=== PATIENT | female | born 1955 | race Caucasian/White ===

== ENCOUNTER → 2019-06-17 | Outpatient (CLI) | payer BC ==
--- NOTE | 2019-06-17 07:40 | US ---
EXAMINATION TYPE: US carotid duplex BILAT DATE OF EXAM: 06/17/2019 COMPARISON: NONE CLINICAL HISTORY: R09.89 Carotid Bruit. EXAM MEASUREMENTS: RIGHT: Peak Systolic Velocity (PSV) cm/sec ----- Right CCA: 62.9 ----- Right ICA: 100. ----- Right ECA: 92.6 ICA/CCA ratio: 1.6 RIGHT: End Diastole cm/sec ----- Right CCA: 22.1 ----- Right ICA: 40.3 ----- Right ECA: 21.4 LEFT: Peak Systolic Velocity (PSV) cm/sec ----- Left CCA: 64.3 ----- Left ICA: 86.0 ----- Left ECA: 109 ICA/CCA ratio: 1.3 LEFT: End Diastole cm/sec ----- Left CCA: 18.2 ----- Left ICA: 38.2 ----- Left ECA: 24.2 VERTEBRALS (direction of flow): Right Vertebral: Antegrade Left Vertebral: Antegrade Rhythm: Normal Mild plaque with no significant velocity elevations. IMPRESSION: Mild degree of grayscale atheromatous plaquing with no sonographically evident hemodynam ically significant stenosis within either visualized carotid arterial system. Criteria for Assigning % of Stenosis / Diameter reduction (Estimation based on the indirect measurements of the internal carotid artery velocities (ICA PSV). 1. Normal (no stenosis)=ICA PSV < 125 cm/s: ratio < 2.0: ICA EDV<40 cm/s. 2. Less than 50% stenosis=ICA PSV < 125 cm/s: ratio < 2.0: ICA EDV<40 cm/s. 3. 50 to 69% stenosis=ICA PSV of 125 to 230 cm/s: ration 2.0 ? 4.0: ICA EDV 40-100 cm/s. 4. Greater than 70% stenosis to near occlusion= ICA PSV > 230 cm/s: ratio > 4.0: ICA EDV > 100 cm/s. 5. Near occlusion= ICA PSV velocities may be low or undetectable: variable ratio and ICA EDV. 6. Total occlusion=unable to detect flow.
[2019-06-17 08:08] LABS: HGB 14.4 gm/dL (11.4-16.0); MCH 26.5 pg (25.0-35.0); MCHC 31.9 g/dL (31.0-37.0); MCV 83.2 fL (80.0-100.0); Mean Platelet Volume 7.6; Platelet Count 267 k/uL (150-450); RBC 5.41 m/uL (3.80-5.40); RDW 14.3 % (11.5-15.5); WBC 6.5 k/uL (3.8-10.6)
[2019-06-17 08:13] LABS: Appearance,Urine Clear (Clear); Bilirubin,Urine Negative (Negative); Blood,Urine Negative (Negative); Color,Urine Light Yellow; Glucose,Urine (UA) Negative (Negative); Ketones,Urine Negative (Negative); Leukocyte Esterase,Urine Negative (Negative); Nitrite,Urine Negative (Negative); Protein,Urine Negative (Negative); Specific Gravity,Urine 1.011 (1.001-1.035); Urobilinogen,Urine <2.0 mg/dL (<2.0)
[2019-06-17 08:19] LABS: ALT 27 U/L (4-34); AST 35 U/L (14-36); African American GFR (CKD) >90 (>60 ml/min/1.73 sqM); Albumin 4.4 g/dL (3.5-5.0); Alkaline Phosphatase 89 U/L (38-126); Anion Gap 7 mmol/L; Blood Urea Nitrogen 18 mg/dL (7-17); Calcium 9.8 mg/dL (8.4-10.2); Carbon Dioxide 28 mmol/L (22-30); Chloride 106 mmol/L (98-107); Cholesterol 218 mg/dL (<200); Glucose 108 mg/dL (74-99); HDL Cholesterol 51 mg/dL (40-60); LDL Cholesterol,Calculated 146 mg/dL (0-99); Magnesium 1.8 mg/dL (1.6-2.3); Non-African American GFR(CKD) 88 (>60 ml/min/1.73 sqM); Potassium 4.8 mmol/L (3.5-5.1); Sodium 141 mmol/L (137-145); Total Bilirubin 0.4 mg/dL (0.2-1.3); Total Protein 7.2 g/dL (6.3-8.2); Triglycerides 105 mg/dL (<150)
--- NOTE | 2019-06-17 09:31 | MR ---
EXAMINATION TYPE: MR brain wo con DATE OF EXAM: 06/17/2019 COMPARISON: CT brain 11/10/2013 HISTORY: Carotid Bruit CONTRAST: Performed utilizing 0 mL intravenous Gadavist gadolinium contrast. TECHNIQUE: Multiplanar, multiecho imaging on a 3.0 Chrissie magnet is performed through the brain. Stud y is performed within 24 hours of arrival to the hospital. The craniovertebral junction is normal. The pituitary is normal. Diffusion-weighted imaging is performed. No abnormal hyperintensity is present to suggest an acute i ntracranial infarct or acute ischemic change. Small Virchow-Jarocho's spaces in the right basal ganglio n. White matter changes on T2 and inversion recovery weighted sequences are evident in the brainstem. Mi lder periventricular white matter changes are present. Ventricles and sulci are appropriate for the patient age. IMPRESSIONS: 1. There is some mild white matter change predominantly within the brainstem. Findings may be related to microvascular ischemic change.
== END | disposition home or self-care (01) ==
LOC: RADMRIMAIN 05:59
PROVIDERS: ATTEND Family Medicine
DX: I67.2 Cerebral atherosclerosis (principal); I10 Essential (primary) hypertension; E78.5 Hyperlipidemia, unspecified; R90.89 Other abnormal findings on diagnostic imaging of central nervous system; R09.89 Other specified symptoms and signs involving the circulatory and respiratory systems; R29.810 Facial weakness; Z79.899 Other long term (current) drug therapy
CPT/HCPCS: 70551; 80053; 80061; 81003; 83036; 83735; 84443; 85027; 93880

== ENCOUNTER → 2020-09-24 | Outpatient (CLI) | payer MEDICARE, OTHER ==
--- NOTE | 2020-09-24 08:30 | CTL ---
EXAMINATION TYPE: CT Low Dose Lung DATE OF EXAM ORDERED: 09/24/2020 HISTORY: Personal history tobacco use. Lung cancer screening CT DLP: 77.[address] CTDI: 2.29 mGy Automated exposure control for dose reduction was used. SCREENING VISIT: Initial COMPARISON: None TECHNIQUE: Low dose computed tomography scan was performed through the chest at 1 mm thick sections a nd reconstructed images in the coronal plane at [address] DIAGNOSTIC QUALITY: Limited, but interpretable FINDINGS: LUNG NODULES: Present, detailed below: There is a 2.9 x 1.6 cm peripheral based density within the right middle lobe, series 5 image 185. Ad ditional workup is recommended. a nodule with a size of . Nodule Size in Millimeters mm was visualize d with Nodule Type: that is Nodule state: in nature on image # CT Image slide number . LUNGS: COPD: Severity: None Fibrosis: Severity: None Lymph nodes: None Other findings: None RIGHT PLEURAL SPACE: Effusion: None Calcification: None Thickening: None Pneumothorax: None LEFT PLEURAL SPACE: Effusion: None Calcification: None Thickening: None Pneumothorax: None HEART: Heart Size: Normal Coronary calcification: Moderate Pericardial effusion: None OTHER FINDINGS: Upper abdomen: Small hiatal hernia is present. Bony thorax: Normal Supraclavicular region: Normal Other: Ascending thoracic aorta at the level the main pulmonary artery measures 3.6 cm. The main pul monary artery at the bifurcation measures 2.6 cm. IMPRESSION: 1. Elongated density extending towards the pleural margin within the right middle lobe. Neoplasm shou ld be considered. PET/CT is recommended for additional evaluation. FOLLOW UP CT CHEST RECOMMENDATION: Yes, PET/CT for right middle lobe mass. CT LUNG RAD: Lung-Rad 4B Suspicious
== END | disposition home or self-care (01) ==
LOC: RADCTMAIN 06:46
PROVIDERS: ATTEND Family Medicine
DX: Z12.2 Encounter for screening for malignant neoplasm of respiratory organs (principal); J98.4 Other disorders of lung; F17.210 Nicotine dependence, cigarettes, uncomplicated
CPT/HCPCS: 71271

== ENCOUNTER → 2020-09-28 | Outpatient (CLI) | payer MEDICARE, OTHER ==
--- NOTE | 2020-09-28 13:43 | PE ---
EXAMINATION TYPE: PET CT fusion skull to thigh DATE OF EXAM: 09/28/2020 COMPARISON: Low-dose lung screening CT 4 days ago HISTORY: Abnormal CT TECHNIQUE: Following the intravenous administration of 10.96 mCi of F-18 FDG, whole body images are performed from the skull base to the midthigh. Images are reviewed on the computer in the coronal, a xial, and sagittal planes. Reconstructed rotating images are created on independent workstation and reviewed on the computer. A localization and attenuation correction CT is performed in conjunction with the PET scan. Blood glucose level equals 102 SCAN: Initial Scan FINDINGS: SKULL BASE AND NECK: No areas of suspicious hypermetabolic uptake. CHEST, MEDIASTINUM, AND HILAR REGION: There is persistent anterior right middle lobe 1.7 x 1.7 cm les ion series 3 image 105, majority of lesion is a metabolic but there is subcentimeter central hypermet abolic focus noted. No additional areas of abnormal hypermetabolic uptake in the thorax. ABDOMEN AND PELVIS: No adrenal masses are evident. No suspicious hypermetabolic uptake. OSSEOUS STRUCTURES: No suspicious hypermetabolic uptake. OTHER CT: Moderate calcified plaque bilateral carotid bulb level. Moderate atherosclerotic change of aorta extends into branch vessels. Grade 1 anterolisthesis L5 on S1. Moderate to severe disc space narrowing with vacuum disc phenomenon at this level. IMPRESSION: Subcentimeter focus abnormal hypermetabolic uptake could reflect small neoplasm with post obstructive atelectasis. At minimal short-term CT or PET CT follow-up in 3 months time is advised. Br onchoscopy to evaluate for obstructing distal endobronchial lesion should be considered.
== END | disposition home or self-care (01) ==
LOC: RADPETMAIN 08:31
PROVIDERS: ATTEND Family Medicine
DX: J98.11 Atelectasis (principal)
CPT/HCPCS: 78815; A9552

== ENCOUNTER → 2020-10-05 | Outpatient (CLI) | payer MEDICARE, OTHER ==
--- NOTE | 2020-10-05 12:36 | FL ---
EXAMINATION TYPE: FL UGI air DATE OF EXAM: 10/05/2020 CLINICAL INDICATION: 65-year-old female R13.10, dysphagia, difficulty swallowing, patient reports hav ing 2 follow-up couple times to make food and liquid go down. COMPARISON: None Total Fluoroscopy Time: 2 minutes 39 seconds Total images: 53. FINDINGS: The swallowing mechanism is normal and hypopharyngeal anatomy is preserved. There is mild to moderat e endplate spondylosis lower cervical spine with anterior spurring causing mild impressions onto the posterior wall of the cervical esophagus. Thoracic portion has a normal course and caliber. Minimal occasional tertiary peristaltic waves sugge st age-related change in esophageal contractility. The mucosa is normal and no persistent filling defect is encountered. There is a small to moderate-sized sliding hiatal hernia. Valsalva maneuver results in backfilling in to the hernia but no ori gastroesophageal reflux could be elicited during the course of the exam. There is mild diffuse gastric fold thickening noted. A couple tiny subcentimeter smooth round polypoi d filling defects are present in the proximal body of the stomach suggesting hyperplastic polyps. No significant filling defect or ulceration is seen. The duodenal C-loop appears normal. IMPRESSION: 1. Some anterior endplate spondylosis in the mid to lower cervical spine causes some mild impression onto the posterior wall of the cervical esophagus. However, there is no significant narrowing or obst ruction. 2. Small to moderate-sized sliding hiatal hernia. There is backfilling into the hernia with Valsalva but ori gastroesophageal reflux could not be elicited during the course of the exam. 3. Findings suggest mild chronic gastritis along with a couple reactive hyperplastic polyps.
== END | disposition home or self-care (01) ==
LOC: RADUSWWP 08:35
PROVIDERS: ATTEND Family Medicine
DX: K44.9 Diaphragmatic hernia without obstruction or gangrene (principal); R93.3 Abnormal findings on diagnostic imaging of other parts of digestive tract
CPT/HCPCS: 74246

== ENCOUNTER → 2020-10-22 | Outpatient (CLI) | payer MEDICARE, OTHER ==
--- NOTE | 2020-10-23 08:59 | MM ---
Reason for exam: screening (asymptomatic). Last mammogram was performed 7 years and 1 month ago. History: Patient is postmenopausal. Physical Findings: A clinical breast exam by your physician is recommended on an annual basis and results should be correlated with mammographic findings. MG 3D Screening Mammo W/Cad Bilateral CC and MLO view(s) were taken. Prior study comparison: September 14, 2013, bilateral digital screening mammo w/CAD. October 05, 2010, bilateral digital screening mammo w/CAD. The breast tissue is heterogeneously dense. This may lower the sensitivity of mammography. There are benign appearing round dystrophic calcifications bilaterally. There is no discrete abnormality. ASSESSMENT: Benign, BI-RAD 2 RECOMMENDATION: Routine screening mammogram of both breasts in 1 year.
== END | disposition home or self-care (01) ==
LOC: RADMAMWWP 08:30
PROVIDERS: ATTEND Family Medicine
DX: Z12.31 Encounter for screening mammogram for malignant neoplasm of breast (principal); Z78.0 Asymptomatic menopausal state
CPT/HCPCS: 77063; 77067

== ENCOUNTER → 2020-11-16 | Outpatient (CLI) | payer MEDICARE, OTHER ==
[2020-11-16 11:19] LABS: Basophils # (A) 0.1 k/uL (0-0.2); Basophils % (A) 1 %; Eosinophils # (A) 0.2 k/uL (0-0.7); Eosinophils % (A) 2 %; HCT 42.4 % (34.0-46.0); HGB 13.5 gm/dL (11.4-16.0); Lymphocytes # (A) 2.2 k/uL (1.0-4.8); Lymphocytes % (A) 34 %; MCH 27.1 pg (25.0-35.0); MCHC 31.9 g/dL (31.0-37.0); MCV 84.9 fL (80.0-100.0); Mean Platelet Volume 7.3; Monocytes # (A) 0.3 k/uL (0-1.0); Monocytes % (A) 5 %; Neutrophils # (A) 3.5 k/uL (1.3-7.7); Neutrophils % (A) 55 %; Platelet Count 253 k/uL (150-450); RBC 4.99 m/uL (3.80-5.40); RDW 13.8 % (11.5-15.5); WBC 6.3 k/uL (3.8-10.6)
[2020-11-16 11:21] LABS: African American GFR (CKD) >90 (>60 ml/min/1.73 sqM); Anion Gap 10 mmol/L; Blood Urea Nitrogen 17 mg/dL (7-17); Carbon Dioxide 25 mmol/L (22-30); Chloride 106 mmol/L (98-107); Glucose 108 mg/dL (74-99); Non-African American GFR(CKD) 79 (>60 ml/min/1.73 sqM); Potassium 3.7 mmol/L (3.5-5.1); Sodium 141 mmol/L (137-145)
[2020-11-16 11:31] LABS: INR 0.9 (<1.2); Partial Thromboplastin Time 24.9 sec (22.0-30.0); Prothrombin Time 10.1 sec (9.0-12.0)
[2020-11-16 11:39] LABS: Appearance,Urine Clear (Clear); Bilirubin,Urine Negative (Negative); Blood,Urine Negative (Negative); Color,Urine Yellow; Glucose,Urine (UA) Negative (Negative); Ketones,Urine Negative (Negative); Leukocyte Esterase,Urine Negative (Negative); Nitrite,Urine Negative (Negative); PH, Urine 5.5 (5.0-8.0); Protein,Urine Negative (Negative); Specific Gravity,Urine 1.016 (1.001-1.035); Urobilinogen,Urine <2.0 mg/dL (<2.0)
== END | disposition home or self-care (01) ==
LOC: LABPAT 10:21
PROVIDERS: ATTEND Thoracic Surgery (Cardiothoracic Vascular Surgery)
DX: Z01.818 Encounter for other preprocedural examination (principal); C34.2 Malignant neoplasm of middle lobe, bronchus or lung; E86.0 Dehydration; E87.8 Other disorders of electrolyte and fluid balance, not elsewhere classified; R58 Hemorrhage, not elsewhere classified; R06.00 Dyspnea, unspecified
CPT/HCPCS: 36415; 80051; 81003; 82565; 82947; 84520; 85025; 85610; 85730; 86850; 86900; 86901; 87086; 93005

== ENCOUNTER 2020-11-22 05:58 | Inpatient (IN) | payer MEDICARE, OTHER ==
[2020-11-20 15:19] VITALS: BMI 28.3
[~2020-11-22 05:58] MED LIST: DEXAMETHASONE SOD PHOSPHATE 4 MG/ML 1 ML VIAL IV ONE; HYDROmorphone 0.5 MG/0.5 ML SYRINGE IVP PRN; LACTATED RINGERS 1,000 ML IV SCH; LIDOCAINE 1% (10MG/ML) FOR IV START INTRADERMA PRN; MIDAZOLAM 2 MG/2 ML VIAL IV PRN; ONDANSETRON 4 MG/2 ML VIAL IVP ONE; fentaNYL (PF) 50 MCG/ML 2 ML AMP IVP PRN
[2020-11-22] MEDS ORDERED: fentaNYL (PF) 50 MCG/ML 2 ML AMP IV ONE (07:04)
[2020-11-22] MEDS ORDERED: PROPOFOL 10 MG/ML 20 ML VIAL IV ONE (07:24)
[2020-11-22] MEDS ORDERED: ROCURONIUM 10 MG/ML (5 ML VIAL) IV ONE (07:24)
[2020-11-22] MEDS ORDERED: HYDROmorphone (PF) 1 MG/ML ONE (07:24)
[2020-11-22] MEDS ORDERED: ROPIVACAINE 5 MG/ML 30 ML VIAL ONE (07:24)
[2020-11-22] MEDS ORDERED: PHENYLEPHRINE-0.9% NACL SYG 1,000 MCG/10 ML SYRINGE ONE (07:24)
[2020-11-22] MEDS ORDERED: GLYCOPYRROLATE 0.2 MG/ML 2 ML VIAL ONE (07:24)
[2020-11-22] MEDS ORDERED: NEOSTIGMINE 1 MG/ML 10 ML VIAL ONE (07:24)
[2020-11-22] MEDS ORDERED: LIDOCAINE 1%-EPI 1:100,000 20 ML VIAL ONE (07:24)
[2020-11-22] MEDS ORDERED: MIDAZOLAM 2 MG/2 ML VIAL ONE (07:24)
[2020-11-22] MEDS ORDERED: fentaNYL (PF) 50 MCG/ML 2 ML AMP ONE (07:24)
[2020-11-22] MEDS ORDERED: SUCCINYLCHOLINE CHLORIDE 100 MG/5 ML SYR IV ONE (07:24)
[2020-11-22] MEDS ORDERED: LIDOCAINE 1% INJ 10MG/ML (20 ML MDV) ONE (07:24)
[2020-11-22] MEDS ORDERED: BUPIVACAINE (PF) 0.5% 30 ML VIAL SQ ONE ×2 (09:08)
[2020-11-22] MEDS ORDERED: LACTATED RINGERS 1,000 ML IV ONE (10:30)
--- NOTE | 2020-11-22 11:41 | XR ---
EXAMINATION TYPE: XR chest 1V portable DATE OF EXAM: 11/22/2020 HISTORY: Shortness of breath. COMPARISON: 11/10/2013 TECHNIQUE: Single view of the chest is submitted. FINDINGS: Right-sided chest tube is in place. There is no evidence for sizable pneumothorax. Strandy density le ft lung base. There is no evidence for focal infiltrate. The heart is stable. Hilar and mediastinal structures are within normal limits. Degenerative changes are seen of the dorsal spine. IMPRESSION: 1. Right-sided chest tube is in place. There is no evidence for sizable pneumothorax.
[2020-11-22] MEDS ORDERED: METOCLOPRAMIDE 5 MG/ML 2 ML VIAL IVP PRN (12:46)
[2020-11-22] MEDS ORDERED: bisacodyL 10 MG SUPP RECTAL PRN (12:46)
[2020-11-22] MEDS ORDERED: ALBUTEROL HFA INHALER INHALATION PRN (12:46)
[2020-11-22] MEDS ORDERED: IPRATROPIUM-ALBUTEROL 3 ML NEB IH PRN (12:46)
[2020-11-22] MEDS ORDERED: ONDANSETRON 4 MG/2 ML VIAL IVP PRN (12:46)
[2020-11-22] MEDS: DEXTROSE 5%-0.45% NACL 1,000 ML IV SCH (13:17)
[2020-11-22] MEDS: KETOROLAC 15 MG/ML 1 ML VIAL IVP SCH ×3 (13:18→23:55)
[2020-11-22 13:20] LABS: Basophils % (A) 0 %; Eosinophils # (A) 0.1 k/uL (0-0.7); Eosinophils % (A) 1 %; HCT 39.3 % (34.0-46.0); HGB 13.2 gm/dL (11.4-16.0); Lymphocytes # (A) 1.1 k/uL (1.0-4.8); Lymphocytes % (A) 9 %; MCH 28.8 pg (25.0-35.0); MCHC 33.5 g/dL (31.0-37.0); Mean Platelet Volume 7.3; Monocytes # (A) 0.5 k/uL (0-1.0); Monocytes % (A) 4 %; Neutrophils # (A) 10.5 k/uL (1.3-7.7); Neutrophils % (A) 84 %; Platelet Count 208 k/uL (150-450); RBC 4.58 m/uL (3.80-5.40); RDW 13.8 % (11.5-15.5); WBC 12.4 k/uL (3.8-10.6)
[2020-11-22] MEDS: ACETAMINOPHEN IV (For NPO) 1,000 MG in EMPTY BAG 1 BAG IVPB SCH ×2 (13:56→18:28)
--- NOTE | 2020-11-22 14:42 | P.OP ---
Date of Procedure: 11/22/20 Preoperative Diagnosis: Middle lobe mass Postoperative Diagnosis: Same Procedure(s) Performed: robotic-assisted thoracoscopic right middle lobectomy with mediastinal lymph node dissection Anesthesia: BIBIANA Surgeon: Yohan Cox Estimated Blood Loss (ml): 10 IV fluids (ml): 1,500 Urine output (ml): 300 Pathology: other (Right middle lobe, lymph node stations R9, R8, R 10, R 11, R4, level 7) Condition: stable Disposition: PACU Indications for Procedure: 5-year-old female with enlarging right middle lobe lesion. She is a smoker. This lesion was positive by PET. Patient was offered several options including needle biopsy for diagnosis, thoracoscopic wedge resection, lobectomy. Patient opted for lobectomy. Operative Findings: tumor was palpable in the middle lobe fairly deep in the tissue. The fissures were nearly complete. On completion of the lobectomy and reexpansion of the lung there was no evidence of air leak. There was extensive hilar and mediastinal adenopathy but this was benign-appearing anthracotic adenopathy throughout. Description of Procedure: the patient was brought to the operating room, placed supine on the operating room table., Anesthetized and intubated with a double-lumen endotracheal tube. Tube was positioned with fiberoptic bronchoscopy. There were no endobronchial lesions noted. Tube was secured in position and the patient was turned into the left lateral decubitus position and appropriately positioned for robotic lobectomy. The right chest was sterilely prepped and draped. Initial incision was made in the ninth interspace in the anterior axillary line and a 8 mm robotic port was placed into the pleural space. Placement was confirmed by thoracoscopy and then CO2 insufflation was begun. Anterior and posterior to the initial port to 12 mm robotic ports were placed. A second 8 mm robotic port was placed in the fifth interspace posteriorly. Working port was placed between the 2 most anterior ports at the level of the diaphragm. The robot was then docked. Chest was explored and the mass was identified in the middle lobe. Partial dissection was performed and the fissures the pulmonary artery was noted in the lesser fissure and the bronchus was noted in the greater fissure. Inferior pulmonary ligament was taken down and dissection of the R9, R8 and level 7 lymph nodes was performed.dissection was carried down along the bronchus intermedius and the takeoff of the superior segmental bronchus to the upper lobe superior segment was noted. Some R 11 lymph nodes were dissected in this region. We now directed our attention anteriorly and dissected out the branch of the pulmonary vein dividing drain the 2 segments of the middle lobe. This was encircled and ligated and divided with the robotic stapler. Dissection was carried onto the middle lobe bronchus. Further R 11 lymph nodes were resected. The bronchus was encircled and ligated and divided with a robotic stapler. Dissection was now carried onto the pulmonary artery. 2 branches of the pulmonary artery were noted leading to the middle lobe. These were encircled and ligated and divided with a single firing of a robotic vascular stapler. We now completed the fissures with firings of Endo KARINA robotic 45 mm blue stapler. The lobectomy specimen was paced in an Endo Catch bag. Further R 11 lymph nodes were dissected. We now opened the pleura at the superior aspect of the hilum and identified the R 10 lymph nodes resecting these and sending them for permanent section. Dissection was now carried into the paratracheal region above the azygos vein and the R4 lymph nodes were resected. Having completed the lobectomy and mediastinal lymph node dissection, the robot was undocked. The working port incision was enlarged somewhat to allow passage of the lobectomy specimen inside the Endo Catch bag. This was sent for permanent section along with the lymph nodes noted above. Chest was irrigated with warm water and the lung reinflated and no air leak was noted. Chest was then suctioned free and a 28-Vietnamese chest tube was placed through the anteriormost incision and positioned posterior apically. It was secured with a 0 Ethibond suture. Incisions were now closed with layers of Vicryl suture. Rib blocks were performed posteriorly at the levels of the incisions with half percent Marcaine. Dry sterile dressings were applied and the chest tube was connected to a Pleur-evac. Patient was turned supine and extubated and transferred to recovery in stable condition.
[2020-11-22] MEDS: IPRATROPIUM-ALBUTEROL 3 ML NEB IH SCH ×3 (15:34→19:55)
--- NOTE | 2020-11-22 15:38 | P.CNPUL ---
History of Present Illness Consult date: 11/22/20 Requesting physician: Yohan Cox Reason for consult: COPD, lung mass, abnormal CXR/CT Chief complaint: Status post right middle lobectomy. History of present illness: Consult dated 11/22/2020. 65-year-old female, postop day #0, status post right middle lobectomy, for PET scan positive right middle lobe lesion. The patient also had a mediastinal lymph node dissection. The surgery was done by Dr. Cox. She is resting comfortably in her room. The patient's getting O2 at 2 L by nasal cannula. She has a right chest tube in place. She's hoping to be discharged over the weekend. The patient has a history of hypertension, COPD, gastroesophageal reflux disease, hyperlipidemia, and seasonal ALLERGIES. The patient tolerated the procedure well. She's having a bit of pain. We encourage her to deep breathe cough and clear secretions and use the incentive spirometer every hour. White count is 12.4, hemoglobin, hematocrit, and platelet count are all normal. Chest x-ray looks good. His a right-sided chest tube. The right lung appears to be fully expanded. Review of Systems REVIEW OF SYSTEMS: CONSTITUTIONAL: [Negative.] NEUROLOGIC: [ Negative.] HEENT: [ Negative.] CARDIAC: [Negative.] PULMONARY: Minimal to moderate right-sided chest pain. GI: [Negative.] : [Negative.] RHEUMATOLOGIC: [ Negative.] IMMUNOLOGIC: [ Negative.] ENDOCRINE: [Negative. ] DERMATOLOGIC: [Negative.] Past Medical History Past Medical History: Cancer, COPD, GERD/Reflux, Hyperlipidemia, Hypertension, Liver Disease, Osteoarthritis (OA) Additional Past Medical History / Comment(s): hx hepatic encephalopathy, skin cancer, hiatal hernia, nodule rt middle lobe History of Any Multi-Drug Resistant Organisms: MRSA Date of last positivie culture/infection: 2012 MDRO Source:: left arm Past Surgical History: No Surgical Hx Reported Additional Past Surgical History / Comment(s): Removal of skin cancer from abdomen, colonocopy Past Anesthesia/Blood Transfusion Reactions: No Reported Reaction Additional Past Anesthesia/Blood Transfusion Reaction / Comment(s): never had general anesthesia Smoking Status: Former smoker - Past Family History Father Family Medical History: Cancer Mother Family Medical History: CVA/TIA, Diabetes Mellitus Sister(s) Family Medical History: Cancer Medications and Allergies Home Medications Medication Instructions Recorded Confirmed Type Omeprazole 20 mg PO DAILY 11/10/13 11/22/20 History Albuterol Sulfate [Proair Hfa] 2 puff INHALATION Q6HR PRN 11/20/20 11/22/20 History Aspirin [Adult Low Dose Aspirin EC] 81 mg PO DAILY 11/20/20 11/22/20 History Atorvastatin [Lipitor] 20 mg PO DAILY 11/20/20 11/22/20 History Cholecalciferol [Vitamin D3 (25 50 mcg PO DAILY 11/20/20 11/22/20 History Mcg = 1000 Iu)] Losartan Potassium 50 mg PO QAM 11/20/20 11/22/20 History Montelukast [Singulair] 10 mg PO HS 11/20/20 11/22/20 History Multivitamins, Thera [Multivitamin 1 tab PO DAILY 11/20/20 11/22/20 History (formulary)] [place]-3 Fatty Acids/Fish Oil [Fish 1 each PO DAILY 11/20/20 11/22/20 History Oil 1,000 mg Softgel] Potassium Gluconate 99 mg PO DAILY 11/20/20 11/22/20 History buPROPion HCL [Wellbutrin SR] 150 mg PO Q12H 11/20/20 11/22/20 History hydroCHLOROthiazide 25 mg PO QAM 11/20/20 11/22/20 History Allergies Allergy/AdvReac Type Severity Reaction Status Date / Time No Known Allergies Allergy Verified 11/22/20 06:27 Physical Exam Osteopathic Statement: *. No significant issues noted on an osteopathic structural exam other than those noted in the History and Physical/Consult. Vitals: Vital Signs Temp Pulse Resp BP BP Pulse Ox 11/22/20 15:27 82 20 151/85 11/22/20 14:00 80 20 147/75 11/22/20 13:30 85 20 132/78 11/22/20 13:09 82 20 138/81 98 11/22/20 12:45 83 20 132/80 11/22/20 12:30 82 20 136/67 11/22/20 12:15 97.5 F L 84 20 153/80 93 L 11/22/20 11:45 73 18 136/72 97 11/22/20 11:30 82 18 148/70 98 11/22/20 11:15 79 16 141/66 97 11/22/20 11:03 67 16 143/67 150/69 100 11/22/20 10:48 78 16 147/69 135/61 100 11/22/20 10:33 96.9 F L 81 14 135/63 100 11/22/20 07:11 75 16 145/70 95 11/22/20 06:26 98.4 F 79 16 148/67 97 Intake and Output 11/22/20 11/22/20 11/22/20 06:59 14:59 22:59 Intake Total 400 1350 Output Total 210 Balance 400 1140 Intake: IV 400 1350 Oral 0 Output: Urine 200 Estimated Blood Loss 10 Other: Weight 77.6 kg No acute distress, oriented 3. Currently on 2 L nasal cannula. Saturations are 98%. HEENT examination is grossly unremarkable. Neck supple. Full range of motion. No adenopathy thyromegaly or neck vein distention. Cardiovascular examination reveals regular rhythm rate. S1-S2 normal. No S3 or S4. No discernible murmur noted. Heart rate is 82 bpm. Lungs reveal clear breath sounds. Breath sounds are equal bilaterally. No adventitious lung sounds including wheezes rhonchi or crackles. Abdomen soft bowel sounds are heard. No masses or tenderness. Extremities are intact. No cyanosis clubbing or edema. Skin is without rash or lesion. Neurologic examination is brief but nonfocal. Results - Laboratory Findings CBC and BMP: 11/22/20 12:57 Abnormal lab findings: Abnormal Labs 11/22/20 12:57 WBC 12.4 H Neutrophils # 10.5 H - Diagnostic Findings Chest x-ray: image reviewed Assessment and Plan Assessment: Postop day #0, status post right middle lobectomy and mediastinal lymph node dissection, for a PET scan-positive lesion in the right middle lobe. Previous history of heavy tobacco use, with recent cessation. History of COPD. History of hypertension. History of seasonal ALLERGIES. History of hyperlipidemia. History of gastroesophageal reflux disease. Plan: Plan dated 11/22/2020. Currently, the patient's doing well. The patient will likely be discharged over the weekend. Encourage deep breathing coughing and clearing secretions. We also recommend hourly use of the incentive spirometer. No additional recommendations are made. The patient will follow-up with my partner post discharge. We will continue to follow make recommendations where appropriate. Time with Patient: Greater than 30
--- NOTE | 2020-11-22 16:35 | P.CONS ---
History of Present Illness - Reason for Consult Consult date: 11/22/20 HTN Requesting physician: Yohan Cox - Chief Complaint lung mass - History of Present Illness Patient is a 65-year-old female with a PET positive right middle lobe lesion status post robotic-assisted thoracoscopy with right middle lobectomy and lymph node dissection. She has HTN< COPD, GERD, HLD, and cirrhosis. Patient tolerated procedure well without any immediate complications. Patient seen and examined at bedside. She reports that her mass was found on his screening x-ray. She stopped smoking when she discovered a mass. She reports that she has a history of liver issues in the past that was over 13 years ago and she has quit drinking sensitive never had any additional liver issues. She has not had any unusual cough, cold, fever, flu, nausea, vomiting, or diarrhea. Postoperatively she denies any cough, chest pain, shortness of breath, nausea, vomiting, or dizziness. Review of Systems Pertinent positives and negatives as discussed in HPI, a complete review of systems was performed and all other systems are negative. Past Medical History Past Medical History: Cancer, COPD, GERD/Reflux, Hyperlipidemia, Hypertension, Liver Disease, Osteoarthritis (OA) Additional Past Medical History / Comment(s): hx hepatic encephalopathy- no issues since 2012 and she has stopped drinking since that time, skin cancer, hiatal hernia, nodule rt middle lobe History of Any Multi-Drug Resistant Organisms: MRSA Year Discovered:: 2012 MDRO Source:: left arm Additional Past Surgical History / Comment(s): Removal of skin cancer from abdomen, colonocopy Past Anesthesia/Blood Transfusion Reactions: No Reported Reaction Additional Past Anesthesia/Blood Transfusion Reaction / Comm: never had general anesthesia Smoking Status: Former smoker Past Alcohol Use History: None Reported Additional History: no assistive devices - Past Family History Father Family Medical History: Cancer Mother Family Medical History: CVA/TIA, Diabetes Mellitus Sister(s) Family Medical History: Cancer Medications and Allergies Home Medications Medication Instructions Recorded Confirmed Type Omeprazole 20 mg PO DAILY 11/10/13 11/22/20 History Albuterol Sulfate [Proair Hfa] 2 puff INHALATION Q6HR PRN 11/20/20 11/22/20 History Aspirin [Adult Low Dose Aspirin EC] 81 mg PO DAILY 11/20/20 11/22/20 History Atorvastatin [Lipitor] 20 mg PO DAILY 11/20/20 11/22/20 History Cholecalciferol [Vitamin D3 (25 50 mcg PO DAILY 11/20/20 11/22/20 History Mcg = 1000 Iu)] Losartan Potassium 50 mg PO QAM 11/20/20 11/22/20 History Montelukast [Singulair] 10 mg PO HS 11/20/20 11/22/20 History Multivitamins, Thera [Multivitamin 1 tab PO DAILY 11/20/20 11/22/20 History (formulary)] [place]-3 Fatty Acids/Fish Oil [Fish 1 each PO DAILY 11/20/20 11/22/20 History Oil 1,000 mg Softgel] Potassium Gluconate 99 mg PO DAILY 11/20/20 11/22/20 History buPROPion HCL [Wellbutrin SR] 150 mg PO Q12H 11/20/20 11/22/20 History hydroCHLOROthiazide 25 mg PO QAM 11/20/20 11/22/20 History Allergies Allergy/AdvReac Type Severity Reaction Status Date / Time No Known Allergies Allergy Verified 11/22/20 06:27 Physical Exam Osteopathic Statement: *. No significant issues noted on an osteopathic structural exam other than those noted in the History and Physical/Consult. Vitals: Vital Signs Temp Pulse Pulse Resp BP BP Pulse Ox 11/22/20 15:42 88 11/22/20 15:36 88 11/22/20 15:27 82 20 151/85 11/22/20 14:00 80 20 147/75 11/22/20 13:30 85 20 132/78 11/22/20 13:09 82 20 138/81 98 11/22/20 12:45 83 20 132/80 11/22/20 12:30 82 20 136/67 11/22/20 12:15 97.5 F L 84 20 153/80 93 L 11/22/20 11:45 73 18 136/72 97 11/22/20 11:30 82 18 148/70 98 11/22/20 11:15 79 16 141/66 97 11/22/20 11:03 67 16 143/67 150/69 100 11/22/20 10:48 78 16 147/69 135/61 100 11/22/20 10:33 96.9 F L 81 14 135/63 100 11/22/20 07:11 75 16 145/70 95 11/22/20 06:26 98.4 F 79 16 148/67 97 Intake and Output 11/22/20 11/22/20 11/22/20 06:59 14:59 22:59 Intake Total 400 1350 Output Total 210 Balance 400 1140 Intake: IV 400 1350 Oral 0 Output: Urine 200 Estimated Blood Loss 10 Other: Weight 77.6 kg General: non toxic, no distress, appears at stated age Derm: warm, dry Head: atraumatic, normocephalic, symmetric Eyes: EOMI, no lid lag, anicteric sclera, pupils equal round reactive to light ENT: Nose and ears atraumatic, no thrush, no pharyngeal erythema Neck: No thyromegaly, no cervical lymphadenopathy, trachea midline, supple Mouth: no lip lesion, mucus membranes moist Cardiovascular: S1S2 reg, no murmur, positive posterior tibial pulse bilateral, no edema, capillary refill less than 2 seconds Lungs: course breath sounds on the right, no ronchi, no rales, no wheeze, no accessory muscle use Abdominal: soft, nontender to palpation, no guarding, no appreciable organomegaly, normal bowel sounds Ext: no gross muscle atrophy, muscle strength muscle strength 5 out of 5 in all 4 extremities, no contractures Neuro: CN II-XI grossly intact, light touch intact all 4 extremities, finger to nose within normal limits, Psych: Alert, oriented, appropriate affect Results CBC & Chem 7: 11/22/20 12:57 Labs: Abnormal Lab Results - Last 24 Hours (Table) 11/22/20 Range/Units 12:57 WBC 12.4 H (3.8-10.6) k/uL Neutrophils # 10.5 H (1.3-7.7) k/uL Assessment and Plan Assessment: 65 yo F s/p robotic right middlelobestomy. Management per CT surgery. HTN -Controlled -Continue home hydrochlorothiazide and losartan HLD - statin GERD - PPI COPD, seasonal allergies - prn bronchodilators - pulm recs -Singulair Hx of tobacco abuse Thank you for allowing us to participate in the care of this pleasant patient. Do not hesitate to contact us with questions. Someone can be reached from the [facility] hospitalist group all hours of the day at [phone] or via perfect serve.
[2020-11-22] MEDS: traMADol 50 MG TAB PO SCH ×2 (17:58→21:37)
[2020-11-22] MEDS: HEPARIN SODIUM,PORCINE/PF 5,000 UNIT/0.5 ML SYRINGE SQ SCH ×2 (18:01→23:55)
--- NOTE | 2020-11-22 20:02 | P.ANPRN ---
Procedure Note - Anesthesia - Nerve Block Performed Right Erector Spinae Single Time Out Performed: Yes Date of Procedure: 11/22/20 Procedure Start Time: 07:04 Procedure Stop Time: 07:10 Location of Patient: PreOp Indication: Acute Post-Operative Pain, Requested by Surgeon Sedation Type: Sedate with meaningful contact maintained Preparation: Sterile Prep Position: Prone Needle Types: Pajunk Needle Gauge: 21 Ultrasound used to visualize needle placement: Yes Ultrasound used to observe medication spread: Yes Resistance on Injection: Normal Image Stored and Saved: Yes Events: Uneventful and Well Tolerated (Ropivacaine 0.5% 15 mL plus Xylocaine 1% with epi 15 mL given at T6)
[2020-11-22] MEDS: buPROPion SR 150 MG TABLET.ER PO SCH (20:33)
[2020-11-22] MEDS ORDERED: MONTELUKAST 10 MG TAB PO SCH (21:00)
[2020-11-23] MEDS: KETOROLAC 15 MG/ML 1 ML VIAL IVP SCH ×2 (06:29→12:10)
[2020-11-23] MEDS: ACETAMINOPHEN TAB 500 MG TAB PO PRN ×2 (07:16→15:39)
[2020-11-23] MEDS: traMADol 50 MG TAB PO SCH (07:17)
[2020-11-23] MEDS ORDERED: PANTOPRAZOLE 40 MG TABLET PO SCH (07:30)
--- NOTE | 2020-11-23 07:45 | XR ---
EXAMINATION TYPE: XR chest 1V DATE OF EXAM: 11/23/2020 HISTORY: Postoperative right middle lobectomy COMPARISON: 11/22/2020 TECHNIQUE: Single view of the chest is submitted. FINDINGS: Right-sided chest tube unchanged in position. No evidence for pneumothorax. Mild increased basilar de nsity may reflect atelectasis. There is no evidence for focal infiltrate. The heart is stable. Hilar and mediastinal structures are within normal limits. Degenerative changes are seen of the dorsal spine. IMPRESSION: 1. Right-sided chest tube unchanged in position. No evidence for pneumothorax. Mild increased basila r density may reflect atelectasis.
[2020-11-23 08:24] LABS: Basophils % (A) 1 %; Eosinophils # (A) 0.1 k/uL (0-0.7); Eosinophils % (A) 1 %; HCT 36.1 % (34.0-46.0); Lymphocytes # (A) 1.9 k/uL (1.0-4.8); Lymphocytes % (A) 27 %; MCH 28.1 pg (25.0-35.0); MCHC 33.3 g/dL (31.0-37.0); MCV 84.4 fL (80.0-100.0); Mean Platelet Volume 7.3; Monocytes # (A) 0.4 k/uL (0-1.0); Monocytes % (A) 5 %; Neutrophils # (A) 4.3 k/uL (1.3-7.7); Neutrophils % (A) 63 %; Platelet Count 242 k/uL (150-450); RBC 4.28 m/uL (3.80-5.40); RDW 13.8 % (11.5-15.5); WBC 6.8 k/uL (3.8-10.6)
[2020-11-23] MEDS: IPRATROPIUM-ALBUTEROL 3 ML NEB IH SCH ×3 (08:25→15:48)
[2020-11-23 08:34] LABS: Calcium 8.5 mg/dL (8.4-10.2); Potassium 4.1 mmol/L (3.5-5.1)
[2020-11-23] MEDS ORDERED: LOSARTAN 50 MG TAB PO SCH (09:00)
[2020-11-23] MEDS ORDERED: CHOLECALCIFEROL 25 MCG (1000 IU) TABLET PO SCH (09:00)
[2020-11-23] MEDS ORDERED: hydroCHLOROthiazide 25 MG TAB PO SCH (09:00)
[2020-11-23] MEDS ORDERED: ASPIRIN 81 MG PO SCH (09:00)
[2020-11-23] MEDS ORDERED: ATORVASTATIN 20 MG TAB PO SCH (09:00)
[2020-11-23] MEDS ORDERED: MULTIVITAMINS, THERA 1 EACH TAB PO SCH (09:00)
--- NOTE | 2020-11-23 09:25 | P.PN ---
Subjective Progress Note Date: 11/23/20 Principal diagnosis: Right middle lobe mass. Past medical history significant for hypertension, hyperlipidemia, chronic obstructive pulmonary disease, gastroesophageal reflux disease, osteoarthritis, history of hepatic encephalopathy and seasonal ALLERGIES. POD #1 robotic-assisted thoracoscopic right middle lobectomy with mediastinal lymph node dissection. This patient was seen in follow-up today 11/23/2020 at her bedside on the cardiac stepdown unit. The patient is sitting up to the bedside chair, is awake, alert and oriented 3 and is in no acute apparent distress. She is currently complaining of surgical type pain to her chest tube insertion site creating her pain 10 out of 10 on the pain scale. Denies any complaints of shortness of breath. Oxygen saturations are 98% on room air and she is achieving 750 mL on her incentive spirometry with encouragement. Right pleural chest tube remains in place to water seal. No air leak is present. Draining thin serous drainage. 160 mL output in the last 12 hours and 250 mL output since surgery. Laboratory results this morning show a WBC count 6.8, hemoglobin 12.0, hematocrit 36.1, platelets 242, sodium 136, potassium 4.1, BUN 14, creatinine 0.89. Objective - Vital Signs Vital signs: Vital Signs Temp 97.9 F 11/23/20 04:00 Pulse 84 11/23/20 08:34 Resp 16 11/23/20 04:00 BP 117/59 11/23/20 04:00 Pulse Ox 98 11/23/20 04:00 Intake & Output 11/22/20 11/23/20 11/23/20 18:59 06:59 18:59 Intake Total 1350 480 Output Total 288 562 Balance 1062 -82 Weight 81 kg Intake: IV 1350 Oral 0 480 Output: Chest Tube Drainage 78 162 Chest Tube Right Left 78 162 Pleural/Mediastinal Urine 200 400 Estimated Blood Loss 10 Other: Voiding Method Toilet # Voids 1 - Exam CONSTITUTIONAL: Sitting up to the bedside chair on cardiac stepdown unit, complaining of pain to her chest tube insertion site, cooperative, no apparent acute distress. HEENT: Neck is supple, no JVD, no lymphadenopathy. Mucous membranes pink and moist. No scleral icterus RESPIRATORY: Lungs sounds essentially clear throughout, diminished to his bilateral bases. Respirations are symmetrical and nonlabored. Currently on room air with oxygen saturations 98%. Able to achieve 750 mL on their incentive spirometry. Strong cough. CARDIOVASCULAR: Regular rhythm and rate. S1 and S2 present, negative for S3, gallop or murmur. Palpable peripheral pulses bilaterally. Squential compression devices in place to her bilateral lower extremities. GASTROINTESTINAL: Abdomen soft, nontender, nondistended. Active bowel sounds present 4 quadrants. Tolerating diet. Passing flatus. No guarding or rigidity. GENITOURINARY: Continues to void. INTEGUMENTARY: Skin is warm, no clubbing or cyanosis is present. Right chest thoracoscopic sites clean, dry and approximated. Dressings clean and dry. NEUROLOGIC: Cranial nerves II through XII intact. No focal deficits. MUSKULOSKELETAL: Able to move all extremities, strength equal bilaterally, generalized weakness. PSYCHIATRIC: Alert and oriented to person place and time, appropriate affect, intact judgment and insight. INVASIVE LINES AND TUBES: Right [facility], no air leak is present. 160 mL of thin serosanguineous drainage in the last 12 hours and 250 mL of thin serous drainage since surgery. - Labs CBC & Chem 7: 11/23/20 07:32 11/23/20 07:32 Labs: Abnormal Lab Results - Last 24 Hours (Table) 11/22/20 11/23/20 Range/Units 12:57 07:32 WBC 12.4 H (3.8-10.6) k/uL Neutrophils # 10.5 H (1.3-7.7) k/uL Sodium 136 L (137-145) mmol/L Glucose 100 H (74-99) mg/dL Assessment and Plan Assessment: 1. Right middle lobe lung mass, status post right middle lobectomy and mediastinal lymph node dissection 2. History of chronic obstructive pulmonary disease 3. History of hypertension 4. History of hyperlipidemia 5. History of tobacco dependence with recent cessation 6. History of GERD 7. History of seasonal ALLERGIES Plan: 1. We will clamp the chest tube for 1 hour, unclamped the chest tube after 1 hour if there is no air leak we will remove the chest tube today. 2. Encourage use of her incentive spirometry 10 times every hour while awake. 3. Bronchodilator management per pulmonary/critical care medicine recommendations. 4. Pathology results remain pending. We will continue to follow. 5. Discharge planning in place. Anticipate discharge home in the next 24 hours. 6. DVT/GI prophylaxis. 7. Pain control per current when necessary orders. 8. Increase activity as tolerated. Out of bed for all meals. 9. Medical management and other comorbidities per primary care service. 10. More recommendations to follow based on patient's clinical course. Time with Patient: Greater than 30
[2020-11-23] MEDS: HEPARIN SODIUM,PORCINE/PF 5,000 UNIT/0.5 ML SYRINGE SQ SCH (09:38)
[2020-11-23] MEDS: buPROPion SR 150 MG TABLET.ER PO SCH (09:38)
[2020-11-23 09:51] VITALS: TEMP 96.3
--- NOTE | 2020-11-23 10:54 | P.PN ---
Subjective Progress Note Date: 11/23/20 No new complaints today. Cardiothoracic team is planning on removing chest tube, discharging patient today. Objective - Vital Signs Vital signs: Vital Signs Temp 96.3 F L 11/23/20 08:30 Pulse 84 11/23/20 08:34 Resp 17 11/23/20 08:30 BP 129/58 11/23/20 08:30 Pulse Ox 96 11/23/20 08:30 Intake & Output 11/22/20 11/23/20 11/23/20 18:59 06:59 18:59 Intake Total 1350 480 118 Output Total 288 562 Balance 1062 -82 118 Weight 81 kg Intake: IV 1350 Oral 0 480 118 Output: Chest Tube Drainage 78 162 Chest Tube Right Left 78 162 Pleural/Mediastinal Urine 200 400 Estimated Blood Loss 10 Other: Voiding Method Toilet # Voids 1 - Exam Gen: awake, alert HEENT: normocephalic, atraumatic, good hearing acuity, moist mucous membranes Resp: good air exchange, breathing comfortably with no accessory muscle use, bilateral posterior crackles CVS: good distal perfusion x 4, regular rate and rhythm without murmurs GI: soft, NTTP, ND : no SPT, no CVAT, vu catheter not present MSK: no pitting edema, no clubbing Neuro: non-focal, moving all extremities Psych: cooperative, euthymic mood - Labs CBC & Chem 7: 11/23/20 07:32 11/23/20 07:32 Labs: Abnormal Lab Results - Last 24 Hours (Table) 11/22/20 11/23/20 Range/Units 12:57 07:32 WBC 12.4 H (3.8-10.6) k/uL Neutrophils # 10.5 H (1.3-7.7) k/uL Sodium 136 L (137-145) mmol/L Glucose 100 H (74-99) mg/dL Assessment and Plan Assessment: 65 yo F s/p robotic right middlelobestomy. Management per CT surgery. HTN -Controlled -Continue home hydrochlorothiazide and losartan HLD - statin GERD - PPI COPD, seasonal allergies - prn bronchodilators - pulm recs -Singulair Hx of tobacco abuse Thank you for allowing us to participate in the care of this pleasant patient. Do not hesitate to contact us with questions. Someone can be reached from the [facility] hospitalist group all hours of the day at [phone] or via perfect serve. Patient is ready to be discharged from medical standpoint
[2020-11-23] MEDS: DEXTROSE 5%-0.45% NACL 1,000 ML IV SCH (11:36)
--- NOTE | 2020-11-23 12:43 | XR ---
EXAMINATION TYPE: XR chest 1V portable DATE OF EXAM: 11/23/2020 HISTORY: Shortness of breath. COMPARISON: 11/23/2020 TECHNIQUE: Single view of the chest is submitted. FINDINGS: Removal of right-sided chest tube. Tiny right apical pneumothorax noted. Basilar increased density ma y reflect atelectasis. The heart is stable. Hilar and mediastinal structures are within normal limits. Degenerative changes are seen of the dorsal spine. IMPRESSION: 1. Removal of right-sided chest tube. Tiny right apical pneumothorax noted. Basilar increased densit y may reflect atelectasis.
--- NOTE | 2020-11-23 13:27 | P.PN ---
Subjective Progress Note Date: 11/23/20 Principal diagnosis: Right middle lobe lesion, positive PET scan 65-year-old female, postop day #0, status post right middle lobectomy, for PET scan positive right middle lobe lesion. The patient also had a mediastinal lymph node dissection. The surgery was done by Dr. Cox. She is resting comfortably in her room. The patient's getting O2 at 2 L by nasal cannula. She has a right chest tube in place. She's hoping to be discharged over the weekend. The patient has a history of hypertension, COPD, gastroesophageal reflux disease, hyperlipidemia, and seasonal ALLERGIES. The patient tolerated the procedure well. She's having a bit of pain. We encourage her to deep breathe cough and clear secretions and use the incentive spirometer every hour. White count is 12.4, hemoglobin, hematocrit, and platelet count are all normal. Chest x-ray looks good. His a right-sided chest tube. The right lung appears to be fully expanded. The patient is seen today 11/23/2020 in follow-up on the selective care unit. She is currently sitting up in a chair at the bedside. Awake and alert in no acute distress. Continue good O2 saturations in the mid 90s on 2 L/m per nasal cannula. She's been afebrile. Hemodynamically stable. Postoperative day #2 of a robotic-assisted thorascopic right middle lobectomy with mediastinal lymph node dissection repair pathology pending. Right-sided chest tube removed. Follow-up chest x-ray reveals a tiny right apical pneumothorax. Basilar atelectasis. She is working well with the incentive spirometer. Remains on bronchodilators, Singulair. Heparin for DVT prophylaxis. Objective - Vital Signs Vital signs: Vital Signs Temp 96.3 F L 11/23/20 08:30 Pulse 84 11/23/20 11:42 Resp 17 11/23/20 08:30 BP 129/58 11/23/20 08:30 Pulse Ox 96 11/23/20 08:30 Intake & Output 11/22/20 11/23/20 11/23/20 18:59 06:59 18:59 Intake Total 1350 480 118 Output Total 288 562 Balance 1062 -82 118 Weight 81 kg Intake: IV 1350 Oral 0 480 118 Output: Chest Tube Drainage 78 162 Chest Tube Right Left 78 162 Pleural/Mediastinal Urine 200 400 Estimated Blood Loss 10 Other: Voiding Method Toilet # Voids 1 - Exam GENERAL EXAM: Alert, active, very pleasant 65-year-old female patient, on 2 L nasal cannula, comfortable in no apparent distress. HEAD: Normocephalic. EYES: Normal reaction of pupils, equal size. NOSE: Clear with pink turbinates. THROAT: No erythema or exudates. NECK: No masses, no JVD. CHEST: No chest wall deformity. Dressing to the right chest drain intact LUNGS: Equal air entry with faint crackles in the right base CVS: S1 and S2 normal with no audible murmur, regular rhythm. ABDOMEN: No hepatosplenomegaly, normal bowel sounds, no guarding or rigidity. SPINE: No scoliosis or deformity SKIN: No rashes CENTRAL NERVOUS SYSTEM: No focal deficits, tone is normal in all 4 extremities. EXTREMITIES: There is no peripheral edema. No clubbing, no cyanosis. Peripheral pulses are intact. - Labs CBC & Chem 7: 11/23/20 07:32 11/23/20 07:32 Labs: Abnormal Lab Results - Last 24 Hours (Table) 11/22/20 11/23/20 Range/Units 12:57 07:32 WBC 12.4 H (3.8-10.6) k/uL Neutrophils # 10.5 H (1.3-7.7) k/uL Sodium 136 L (137-145) mmol/L Glucose 100 H (74-99) mg/dL Assessment and Plan Assessment: Postop day #1, status post right middle lobectomy and mediastinal lymph node dissection, for a PET scan-positive lesion in the right middle lobe. Previous history of heavy tobacco use, with recent cessation. History of COPD. History of hypertension. History of seasonal ALLERGIES. History of hyperlipidemia. History of gastroesophageal reflux disease Sanju: The patient was seen and evaluated by Dr. Maria Right-sided chest tube removed Follow-up chest x-ray reviewed Cleared for discharge from the pulmonary standpoint Continue to work with the incentive spirometer Follow up with Dr. Hidalgo in 1-2 weeks' time I, the cosigning physician, performed a history & physical examination of the patient. Lungs sounds with crackles in the right base. Maintaining good O2 saturations in the 90s on 2 L/m per nasal cannula. I discussed the assessment and plan of care with my nurse practitioner, Maritza Tompkins. I attest to the above note as dictated by her.
[2020-11-23 14:00] VITALS: BP 141/66; PULSE 87; RESP 18
--- NOTE | 2020-11-23 14:38 | P.DS ---
Providers Date of admission: 11/22/20 05:58 Expected date of discharge: 11/23/20 Attending physician: Yohan Cox Consults: 11/22/20 12:46 Consult Physician Routine Consulting Provider: True Maria Consult Reason/Comments: Pulmoanry Management Do you want consulting provider notified?: Yes Consult Physician Routine Consulting Provider: Aleja Cooper Consult Reason/Comments: Medical Management Do you want consulting provider notified?: Yes Primary care physician: Angela Thibodeaux Hospital Course: FINAL DIAGNOSIS: 1. Right middle lobe lung mass, status post right middle lobectomy and mediastinal lymph node dissection 2. History of chronic obstructive pulmonary disease 3. History of hypertension 4. History of hyperlipidemia 5. History of tobacco dependence with recent cessation 6. History of GERD 7. History of seasonal ALLERGIES PRINCIPAL PROCEDURE: 1. robotic-assisted thoracoscopic right middle lobectomy with mediastinal lymph node dissection. HISTORY OF PRESENT ILLNESS: This is a 65-year-old female patient who is followed by Dr. Angela Thibodeaux on an outpatient basis for her primary care needs. She also follows with Dr. Hidalgo from pulmonary medicine. She has a past medical history significant for chronic obstruction pulmonary disease, hypertension, hyperlipidemia, chronic tobacco dependence with recent cessation, gastroesophageal reflux disease and history of seasonal ALLERGIES. The patient recently underwent a chest x-ray which showed a mass in her right lung. For follow-up a computed tomography scan of her chest was completed which demonstrated a presence of a mass to her right middle lobe. Subsequently due to the findings of the mass to her right middle lobe a PET scan was completed which demonstrated uptake in the mass with no evidence of metastasis. She was referred to Dr. Yohan oCx from cardiothoracic surgery for further evaluation and treatment recommendations including robotic-assisted thoracoscopic surgery with right middle lobectomy. Risks and benefits of the surgery were discussed with the patient and knowing and understanding the risks the patient wished to proceed with the surgical option. HOSPITAL COURSE: On 11/22/2020 the patient was admitted to the hospital, consent was obtained and she was taken to the preoperative area, prepared in the usual fashion and subsequently taken to the operating room where Dr. Yohan Cox performed a robotic-assisted thoracoscopic right middle lobectomy with mediastinal lymph node dissection. Postoperatively the patient was extubated, recovered and monitored hemodynamically. Subsequently she was admitted to the third floor cardiac stepdown unit for further monitoring and rehabilitation. Her oxygen was titrated down, her chest tube was removed when appropriate, she was ambulating in the kasper with minimal assistance from nursing staff, she was tolerating an oral diet, her pain was well controlled on acetaminophen and she was ready to be discharged home on postoperative day #2. The patient has received written and verbal instructions regarding her medications, activity restrictions, signs and symptoms requiring physician notification and her follow-up appointments. The patient's sister who was present at her bedside was also updated on the discharge instructions. The patient's pathology results remain pending and will be discussed with the patient on an outpatient basis on her follow-up appointments. COMPLICATIONS: There were no postoperative, locations. CONSULTATIONS: 1. Dr. Maria for pulmonary management. 2. Dr. Cooper for medical management. Plan - Discharge Summary Discharge Rx Participant: Yes New Discharge Prescriptions: New Acetaminophen Tab [Tylenol] 1,000 mg PO Q6HR PRN tab PRN Reason: Fever And/ Or Pain Continue Omeprazole 20 mg PO DAILY buPROPion HCL [Wellbutrin SR] 150 mg PO Q12H Albuterol Sulfate [Proair Hfa] 2 puff INHALATION Q6HR PRN PRN Reason: sob Montelukast [Singulair] 10 mg PO HS Losartan Potassium 50 mg PO QAM Potassium Gluconate 99 mg PO DAILY Aspirin [Adult Low Dose Aspirin EC] 81 mg PO DAILY Atorvastatin [Lipitor] 20 mg PO DAILY hydroCHLOROthiazide 25 mg PO QAM Cholecalciferol [Vitamin D3 (25 Mcg = 1000 Iu)] 50 mcg PO DAILY Multivitamins, Thera [Multivitamin (formulary)] 1 tab PO DAILY [place]-3 Fatty Acids/Fish Oil [Fish Oil 1,000 mg Softgel] 1 each PO DAILY Discharge Medication List Omeprazole 20 mg PO DAILY 11/10/13 [History] Albuterol Sulfate [Proair Hfa] 2 puff INHALATION Q6HR PRN 11/20/20 [History] Aspirin [Adult Low Dose Aspirin EC] 81 mg PO DAILY 11/20/20 [History] Atorvastatin [Lipitor] 20 mg PO DAILY 11/20/20 [History] Cholecalciferol [Vitamin D3 (25 Mcg = 1000 Iu)] 50 mcg PO DAILY 11/20/20 [History] Losartan Potassium 50 mg PO QAM 11/20/20 [History] Montelukast [Singulair] 10 mg PO HS 11/20/20 [History] Multivitamins, Thera [Multivitamin (formulary)] 1 tab PO DAILY 11/20/20 [History] [place]-3 Fatty Acids/Fish Oil [Fish Oil 1,000 mg Softgel] 1 each PO DAILY 11/20/20 [History] Potassium Gluconate 99 mg PO DAILY 11/20/20 [History] buPROPion HCL [Wellbutrin SR] 150 mg PO Q12H 11/20/20 [History] hydroCHLOROthiazide 25 mg PO QAM 11/20/20 [History] Acetaminophen Tab [Tylenol] 1,000 mg PO Q6HR PRN tab 11/23/20 [Rx] Follow up Appointment(s)/Referral(s): Felton Hidalgo MD [STAFF PHYSICIAN] - 12/11/20 1:30 pm Yohan Cox MD [STAFF PHYSICIAN] - 12/06/20 9:45 am Angela Thibodeaux MD [Primary Care Provider] - 1 Week Activity/Diet/Wound Care/Special Instructions: DISCHARGE INSTRUCTIONS: 1. No driving for 2 weeks, or until physician gives their ok. 2. No lifting, pushing, or pulling more than 10 pounds for 2 weeks. The physician will advise of any restriction changes. 3. Continue pain control per as needed orders. Alternate acetaminophen (Tylenol) and ibuprofen (Motrin/Advil) for pain. 4. Continue with incentive spirometry and splinting until otherwise directed by the physician. 5. Leave chest tube dressing for 48 hours. After that, remove all dressings and shower daily. 6. Routine incision care. No powders, lotions, ointments on incisions. 7. Please call surgeon/EMISSIONS REPAIR TECHNICIAN for temp greater than 101 F or purulent drainage from incisions. 8. Smoking cessation counseling and program information provided. For any questions or concerns please call nurse practitioners Bree at [phone] or Don at [phone] Discharge Disposition: HOME SELF-CARE
--- NOTE | 2020-11-27 16:55 | CDI ---
Documentation Clarification Form Date: 11/27/2020 04:48:16 PM From: Diomedes Walsh Phone: Brenda Romero [phone] Admit Date: 11/22/2020 05:58:00 AM Patient Name: Tripp Ramos Visit Number: [id number] Discharge Date: 11/23/2020 03:51:00 PM ATTENTION: The Clinical Documentation Specialists (CDI) and [facility] Coding Staff appreciate your assistance in clarifying documentation. Please respond to the clarification below the line at the bottom and electronically sign. The CDI & [facility] Coding staff will review the response and follow-up if needed. Please note: Queries are made part of the Legal Health Record. If you have any questions, please contact the author of this message via ITS. Dr. 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 Coding guidelines do not allow coding professionals to code based on pathology results; therefore, clarification is requested. History/risk factors: diagnosis of RML lung mass: discharge summary Clinical Indicators: lung mass Treatment: RML lobectomy with LN biopsy Please clarify if you agree with the pathology report diagnosis of [insert result/diagnosis]: [ x ] Yes [ ] No [ ] Other (please specify) [ ] Unable to determine MTDD
== END 2020-11-23 15:51 | disposition home or self-care (01) | DRG 165 ==
LOC: 2ORMAIN 05:58 → 3SCARD 11:21
PROVIDERS: ADMIT Thoracic Surgery (Cardiothoracic Vascular Surgery); ATTEND Thoracic Surgery (Cardiothoracic Vascular Surgery)
PROC: 07B73ZX Excision of Thorax Lymphatic, Percutaneous Approach, Diagnostic (ICD-10-PCS; 2020-11-22)
PROC: 8E0W4CZ Robotic Assisted Procedure of Trunk Region, Percutaneous Endoscopic Approach (ICD-10-PCS; 2020-11-22)
PROC: 0BTD4ZZ Resection of Right Middle Lung Lobe, Percutaneous Endoscopic Approach (ICD-10-PCS; principal; 2020-11-22 07:30)
DX: C34.2 Malignant neoplasm of middle lobe, bronchus or lung (principal); J44.9 Chronic obstructive pulmonary disease, unspecified; I10 Essential (primary) hypertension; E78.5 Hyperlipidemia, unspecified; K21.9 Gastro-esophageal reflux disease without esophagitis; J30.2 Other seasonal allergic rhinitis; K74.60 Unspecified cirrhosis of liver; F17.200 Nicotine dependence, unspecified, uncomplicated; Z83.3 Family history of diabetes mellitus; Z85.828 Personal history of other malignant neoplasm of skin; Z79.82 Long term (current) use of aspirin
CPT/HCPCS: 36415; 64461; 71045; 76942; 80048; 85025; 86850; 86900; 86901; 87635; 88305; 88309; 88341; 88342; 94640; 94760

== ENCOUNTER → 2021-10-25 | Outpatient (CLI) | payer MEDICARE, OTHER ==
--- NOTE | 2021-10-28 11:58 | MM ---
Reason for exam: screening (asymptomatic). Last mammogram was performed 1 year ago. History: Patient is postmenopausal and has history of other cancer at age 65. Physical Findings: A clinical breast exam by your physician is recommended on an annual basis and results should be correlated with mammographic findings. MG 3D Screening Mammo W/Cad Bilateral CC and MLO view(s) were taken. Prior study comparison: October 22, 2020, bilateral MG 3d screening mammo w/cad. September 14, 2013, bilateral digital screening mammo w/CAD. The breast tissue is heterogeneously dense. This may lower the sensitivity of mammography. Stable benign calcifications. No significant changes when compared with prior studies. ASSESSMENT: Benign, BI-RAD 2 RECOMMENDATION: Routine screening mammogram of both breasts in 1 year.
== END | disposition home or self-care (01) ==
LOC: RADMAMWWP 06:36
PROVIDERS: ATTEND Family Medicine
DX: Z12.31 Encounter for screening mammogram for malignant neoplasm of breast (principal)
CPT/HCPCS: 77063; 77067

== ENCOUNTER → 2021-11-01 | Outpatient (CLI) | payer MEDICARE, OTHER ==
[2021-11-01 10:41] LABS: African American GFR (CKD) >90 (>60 ml/min/1.73 sqM); Blood Urea Nitrogen 12 mg/dL (7-17); Non-African American GFR(CKD) 90 (>60 ml/min/1.73 sqM)
--- NOTE | 2021-11-01 14:01 | CT ---
EXAMINATION TYPE: CT chest w con DATE OF EXAM: 11/01/2021 COMPARISON: Low-dose chest CT dated 09/24/2020 HISTORY: History of lung and skin cancer. CT DLP: 350.2 mGycm Automated exposure control for dose reduction was used. TECHNIQUE: CT scan of the chest is performed with IV Contrast, patient injected with 100 mL of Isovue M300. MIP Images are created on CT scanner and reviewed. 3D reconstructed images are created on an independent workstation and reviewed. FINDINGS: The focal density/mass in the right middle lobe on the prior study 221 has resolved in the interval. There are 2- 3 small sub-6 mm groundglass nodules bilaterally. One of the nodules in the right upper lobe is not clearly identified in the prior study. 6 month follow-up CT is recommended for further ev aluation. There is no pleural effusion, pleural thickening or pneumothorax. The great vessels chest are normal is no mediastinal, hilar or axillary adenopathy. Scanning the upper lobes abnormality. Structures are intact. IMPRESSION: 1. Previously described mass in the right upper lobe has resolved in the interval. 2. Few scattered sub-6 mm groundglass nodules bilaterally. One of which is in the right upper lobe is not identified in the prior study a six-month follow-up CT is recommended to confirm stability. 3. No acute cardiopulmonary disease.
== END | disposition home or self-care (01) ==
LOC: RADCTMAIN 09:37
PROVIDERS: ATTEND Internal Medicine
DX: R91.8 Other nonspecific abnormal finding of lung field (principal)
CPT/HCPCS: 82565; 84520; 71260; 36415; Q9967

== ENCOUNTER → 2022-01-17 | Outpatient (CLI) | payer MEDICARE, OTHER ==
--- NOTE | 2022-01-17 11:24 | CA ---
Transthoracic Echo Report Name: Tirpp Ramos Age: 66 Gender: F : 1955 Exam Date: 01/17/2022 09:01 Exam Location: [facility] Ht (in): 65 Wt (lb): 166 Ordering Physician: Allan Kasper MD Attending/Referring Phys: Music Promoter Anaid Cage RDCS Procedure CPT: Indications: Z82.49 FAMILY HX OF HEART DISEASE Cardiac Hx: Technical Quality: Good Contrast 1: Total Dose (mL): Contrast 2: Total Dose (mL): MEASUREMENTS (Male / Female) Normal Values 2D ECHO LV Diastolic Diameter PLAX 3.7 cm 4.2 - 5.9 / 3.9 - 5.3 cm LV Systolic Diameter PLAX 2.5 cm IVS Diastolic Thickness 1.0 cm 0.6 - 1.0 / 0.6 - 0.9 cm LVPW Diastolic Thickness 1.2 cm 0.6 - 1.0 / 0.6 - 0.9 cm LV Relative Wall Thickness 0.6 RV Internal Dim ED PLAX 2.8 cm LA Systolic Diameter LX 3.4 cm 3.0 - 4.0 / 2.7 - 3.8 cm LA Volume 51.9 cm??? 18 - 58 / 22 - 52 cm??? M-MODE Aortic Root Diameter MM 2.6 cm MV E Point Septal Separation 0.6 cm AV Cusp Separation MM 2.2 cm DOPPLER AV Peak Velocity 162.9 cm/s AV Peak Gradient 10.6 mmHg MV Area PHT 3.2 cm??? Mitral E Point Velocity 90.1 cm/s Mitral A Point Velocity 89.6 cm/s Mitral E to A Ratio 1.0 MV Deceleration Time 238.4 ms MV E' Velocity 7.9 cm/s Mitral E to MV E' Ratio 11.4 TR Peak Velocity 208.6 cm/s TR Peak Gradient 17.4 mmHg Right Ventricular Systolic Press 21.9 mmHg FINDINGS Left Ventricle Left ventricular ejection fraction is estimated at 55-60 %. Left ventricular cavity size normal. Borderline left ventricular hypertrophy. Right Ventricle Normal right ventricular size and function. Right ventricular systolic pressure within normal limits. Right Atrium Normal right atrial size. Left Atrium Normal left atrial size. No evidence for an atrial septal defect. Mitral Valve Mitral annular calcification. No mitral stenosis. Mild mitral regurgitation. Aortic Valve Trileaflet aortic valve. No aortic valve stenosis or regurgitation.aortic valve sclerosis. Tricuspid Valve Mild tricuspid regurgitation.structurally normal tricuspid valve. Pulmonic Valve Trace pulmonic regurgitation. Pericardium Normal pericardium. No pericardial effusion. Aorta Normal size aortic root and proximal ascending aorta. CONCLUSIONS 1. Normal size and systolic function 2. Mild mitral and tricuspid regurgitation. 3. No pericardial effusion Previewed by: Dr. Keely Barraza MD (Electronically Signed) Final Date: 17 January 2022 11:23
== END | disposition home or self-care (01) ==
LOC: RADECHMAIN 08:42
PROVIDERS: ATTEND Family Medicine
DX: C34.90 Malignant neoplasm of unspecified part of unspecified bronchus or lung (principal); Z82.49 Family history of ischemic heart disease and other diseases of the circulatory system
CPT/HCPCS: 93306

== ENCOUNTER 2022-05-06 08:17 | Day surgery (SDC) | payer MEDICARE, OTHER ==
[2022-05-02 14:36] VITALS: BMI 27.9
[~2022-05-06 08:17] MED LIST changes: -DEXAMETHASONE SOD PHOSPHATE 4 MG/ML 1 ML VIAL IV ONE; -HYDROmorphone 0.5 MG/0.5 ML SYRINGE IVP PRN; -MIDAZOLAM 2 MG/2 ML VIAL IV PRN; -ONDANSETRON 4 MG/2 ML VIAL IVP ONE; -fentaNYL (PF) 50 MCG/ML 2 ML AMP IVP PRN
[2022-05-06 08:46] VITALS: TEMP 96.5
[2022-05-06 08:55] LABS: Glucose,Whole Blood 97 mg/dL (70-110)
[2022-05-06] MEDS ORDERED: PROPOFOL 10 MG/ML 20 ML VIAL IV ONE (09:39)
--- NOTE | 2022-05-06 09:55 | P.PCN ---
Date of Procedure: 05/06/22 Procedure(s) Performed: BRIEF HISTORY: Patient is a 66-year-old pleasant female scheduled for an elective colonoscopy as a part of the for colon cancer. PROCEDURE PERFORMED: Colonoscopy. PREOPERATIVE DIAGNOSIS: Screening for colon cancer. IV sedation per Anesthesia. PROCEDURE: After informed consent was obtained, the patient, was brought into the endoscopy unit. IV sedation was administered by Anesthesia under continuous monitoring. Digital rectal examination was normal. Initially the Olympus CF-160 flexible video colonoscope was then inserted in the rectum, gradually advanced into the cecum without any difficulty. Careful examination was performed as the scope was gradually being withdrawn. Ileocecal valve and the appendiceal orifice were visualized and appeared normal. Prep was excellent. Mucosa of the cecum, ascending colon, transverse colon, descending colon, sigmoid colon, and rectum appeared normal. Scattered sigmoid diverticulosis. Retroflexion was performed in the rectum and no lesions were seen. The patient tolerated the procedure well. IMPRESSION: Normal-appearing colon from rectum to cecum with no evidence of colorectal neoplasia. Scattered sigmoid diverticulosis RECOMMENDATIONS: Findings of this examination were discussed with the patient as well as her family. She was advised to have a repeat screening colonoscopy in 10 years..
[2022-05-06 10:00] VITALS: RESP 18
[2022-05-06 10:12] VITALS: BP 127/81; PULSE 78
== END 2022-05-06 10:36 | disposition home or self-care (01) ==
LOC: ORWHC2ENDO 08:17
PROVIDERS: ATTEND Internal Medicine Gastroenterology
DX: Z12.11 Encounter for screening for malignant neoplasm of colon (principal); K57.30 Diverticulosis of large intestine without perforation or abscess without bleeding; I10 Essential (primary) hypertension; E78.5 Hyperlipidemia, unspecified; J44.9 Chronic obstructive pulmonary disease, unspecified; F17.200 Nicotine dependence, unspecified, uncomplicated; E11.9 Type 2 diabetes mellitus without complications; K21.9 Gastro-esophageal reflux disease without esophagitis; K75.9 Inflammatory liver disease, unspecified; Z79.84 Long term (current) use of oral hypoglycemic drugs; Z79.82 Long term (current) use of aspirin; Z79.899 Other long term (current) drug therapy
CPT/HCPCS: J2704; G0121

== ENCOUNTER → 2022-05-09 | Outpatient (CLI) | payer MEDICARE, OTHER ==
[2022-05-09 07:25] LABS: African American GFR (CKD) >90 (>60 ml/min/1.73 sqM); Blood Urea Nitrogen 16 mg/dL (7-17); Non-African American GFR(CKD) >90 (>60 ml/min/1.73 sqM)
--- NOTE | 2022-05-09 09:02 | CT ---
EXAMINATION TYPE: CT chest w con DATE OF EXAM: 05/09/2022 COMPARISON: 11/01/2021 HISTORY: Lung Cancer CT DLP: 386 mGycm Automated exposure control for dose reduction was used. CONTRAST: CT scan of the chest is performed with IV Contrast, patient injected with 70 mL of Isovue 300. FINDINGS: LUNGS: The lungs are grossly clear, there is no concerning parenchymal mass or nodule identified. T here is no pleural effusion or pneumothorax seen. The tracheobronchial tree is patent. MEDIASTINUM: There are no greater than 1 cm hilar or mediastinal lymph nodes. No pericardial effusi on is seen. Thoracic aorta is of normal caliber. The heart is not enlarged. UPPER ABDOMEN: No significant abnormality appreciated. OTHER: No additional significant abnormality is seen. IMPRESSION: 1. Unremarkable CT of the chest without evidence for pulmonary nodule or mass.
== END | disposition home or self-care (01) ==
LOC: RADCTMAIN 06:37
PROVIDERS: ATTEND Family Medicine
DX: C34.90 Malignant neoplasm of unspecified part of unspecified bronchus or lung (principal); I10 Essential (primary) hypertension
CPT/HCPCS: 82565; 84520; 71260; 36415; Q9967

== ENCOUNTER 2022-10-13 10:00 | Inpatient (IN) | payer MEDICARE, OTHER ==
[2022-10-13] MEDS ORDERED: ASPIRIN 81 MG PO STA ×2 (10:27→11:46)
[2022-10-13] MEDS ORDERED: SODIUM CHLORIDE 0.9% 500 ML 500 ML IV STA (10:27)
[2022-10-13 10:51] LABS: Basophils % (A) 0 %; Eosinophils # (A) 0.1 k/uL (0-0.7); Eosinophils % (A) 1 %; HCT 36.9 % (34.0-46.0); HGB 12.4 gm/dL (11.4-16.0); Lymphocytes % (A) 21 %; MCH 28.1 pg (25.0-35.0); MCHC 33.5 g/dL (31.0-37.0); MCV 83.9 fL (80.0-100.0); Mean Platelet Volume 7.8; Monocytes # (A) 0.4 k/uL (0-1.0); Monocytes % (A) 5 %; Neutrophils # (A) 6.8 k/uL (1.3-7.7); Neutrophils % (A) 72 %; Platelet Count 311 k/uL (150-450); RDW 12.8 % (11.5-15.5); WBC 9.5 k/uL (3.8-10.6)
[2022-10-13 11:02] LABS: Partial Thromboplastin Time 24.8 sec (22.0-30.0); Prothrombin Time 10.6 sec (9.0-12.0)
[2022-10-13 11:07] LABS: Albumin 4.7 g/dL (3.5-5.0); Calcium 9.5 mg/dL (8.4-10.2); Magnesium 1.1 mg/dL (1.6-2.3); Potassium 4.3 mmol/L (3.5-5.1); Total Bilirubin 0.8 mg/dL (0.2-1.3); Total Protein 7.4 g/dL (6.3-8.2)
--- NOTE | 2022-10-13 11:38 | XR ---
EXAMINATION TYPE: XR chest 2V DATE OF EXAM: 10/13/2022 COMPARISON: 11/23/2020 INDICATION: Chest pain TECHNIQUE: Frontal and lateral views of the chest are obtained. FINDINGS: The heart size is normal. The pulmonary vasculature is normal. The lungs are clear. There may be some mild hyperinflation with flattening of the diaphragms. Consid er COPD IMPRESSION: 1. No acute pulmonary process.
--- NOTE | 2022-10-13 11:45 | CT ---
EXAMINATION TYPE: CT angio thor/abd pel aorta DATE OF EXAM: 10/13/2022 COMPARISON: 05/09/2022 HISTORY: Eval for aortic dissection atypical chest pain. CT DLP: 1513.2 mGycm, Automated exposure control for dose reduction was used. CONTRAST: Performed injected with 100 mL of Isovue 370. TECHNIQUE: Axial images were obtained at 5 mm thick sections. Reconstructed images are reviewed on [employer] computer in the coronal plane. FINDINGS: Portion of the thyroid visualized is normal. No suspicious lung nodules or focal infiltrates are present. No enlarged mediastinal or hilar adenopathy is evident. The ascending aorta diameter at the level o f the main pulmonary artery is 0.3 cm. The main pulmonary artery diameter at the bifurcation is 2.7 cm. No aortic dissection is evident. Ascending and descending thoracic aorta, abdominal aorta, and il iac vessels appear without aneurysmal dilatation or dissections. CT sections are obtained through the abdomen and pelvis. Abdomen and pelvis are essentially unremarka ble. IMPRESSIONS: 1. No acute abnormality of the aorta.
[2022-10-13] MEDS ORDERED: HEPARIN SODIUM 1,000 UN/ML (10ML VL) IV PRN (11:46)
[2022-10-13] MEDS ORDERED: HEPARIN SODIUM 1,000 UN/ML (10ML VL) IV ONE (11:46)
--- NOTE | 2022-10-13 11:51 | ED ---
General Adult HPI - General Chief complaint: Chest Pain Stated complaint: abn ekg sent by Dr Mcmillan Seen by Provider: 10/13/22 10:17 Source: patient, RN notes reviewed, old records reviewed Mode of arrival: ambulatory Limitations: no limitations - History of Present Illness Initial comments: Patient is a 67-year-old female presents emergency Department complaining of chest pain that was on Thursday. Describes it as a sharp, achy sensation that she states was kind of over her entire chest and described as a pressure sensation as well. Chest discomfort resolved by Thursday. Associated with the pressure she was having some shortness of breath, as well as mild nausea. She is feeling improved at this time. She states that when she had her symptoms a lso on Thursday, she had some strange generalized weakness as well as intermittent episodes of tingling sensation in different extremities. Denied any radiation of the pain to her back. Is not on blood thinners. Denies any lower extremity edema. Patient states she otherwise feels improved at this time but presented to Dr. Rodriguez office for evaluation today and they noted that she had T-wave inversions in the inferior leads and lateral leads and sent her to the emergency department for evaluation. She currently denies any acute complaints. Denies any current chest pain. Denies any current symptoms. Presents for further evaluation at this time. - Related Data Home Medications Medication Instructions Recorded Confirmed Omeprazole 20 mg PO DAILY 11/10/13 10/13/22 Albuterol Sulfate [Proair Hfa] 2 puff INHALATION RT-Q6H PRN 11/20/20 10/13/22 Aspirin [Adult Low Dose Aspirin EC] 81 mg PO DAILY 11/20/20 10/13/22 Atorvastatin [Lipitor] 20 mg PO HS 11/20/20 10/13/22 Montelukast [Singulair] 10 mg PO HS 11/20/20 10/13/22 Multivitamins, Thera [Multivitamin 1 tab PO DAILY 11/20/20 10/13/22 (formulary)] [place]-3 Fatty Acids/Fish Oil [Fish 1 cap PO DAILY 11/20/20 10/13/22 Oil 1,000 mg Softgel] Loratadine [Claritin] 10 mg PO DAILY 05/02/22 10/13/22 Olmesartan/Hydrochlorothiazide 1 tab PO DAILY 05/02/22 10/13/22 [Olmesartan-Hctz 40-12.5 mg Tab] metFORMIN HCL 500 mg PO BID 05/02/22 10/13/22 Cholecalciferol [Vitamin D3 (125 125 mcg PO DAILY 10/13/22 10/13/22 Mcg = 5000 Iu)] Previous Rx's Medication Instructions Recorded Acetaminophen Tab [Tylenol] 1,000 mg PO Q6HR PRN tab 11/23/20 Allergies Allergy/AdvReac Type Severity Reaction Status Date / Time No Known Allergies Allergy Verified 10/13/22 12:07 Review of Systems ROS Statement: Those systems with pertinent positive or pertinent negative responses have been documented in the HPI. Review of Systems: CONST: Denies fever EYES: Denies blurry vision ENT: Denies nasal congestion C/V: Endorses resolved chest pain RESP: Denies shortness of breath GI: Denies abdominal pain : Denies dysuria SKIN: Denies rash. MSK: Denies joint pain. NEURO: Denies headache ROS Other: All systems not noted in ROS Statement are negative. Past Medical History Past Medical History: Cancer, COPD, Diabetes Mellitus, GERD/Reflux, Hyperlipidemia, Hypertension, Liver Disease, Osteoarthritis (OA) Additional Past Medical History / Comment(s): hx hepatic encephalopathy- no issues since 2012 and she has stopped drinking since that time, skin cancer, hiatal hernia, nodule rt middle lobe -CANCER History of Any Multi-Drug Resistant Organisms: None Reported Date of last positivie culture/infection: 2012 MDRO Source:: left arm Past Surgical History: Tubal Ligation Additional Past Surgical History / Comment(s): Removal of skin CA, RT MIDDLE LOBECTOMY, RT HAND SMALL FINGER TENDON REPAIR, COLONOSCOPY, Past Anesthesia/Blood Transfusion Reactions: No Reported Reaction Additional Past Anesthesia/Blood Transfusion Reaction / Comment(s): never had general anesthesia Past Psychological History: Anxiety, Depression Smoking Status: Former smoker Past Alcohol Use History: None Reported Past Drug Use History: None Reported - Past Family History Father Family Medical History: Cancer Mother Family Medical History: CVA/TIA, Diabetes Mellitus Sister(s) Family Medical History: Cancer General Exam - General Exam Comments Initial Comments: General: Appears in no acute distress. HEAD: Normal with no signs of head trauma. EYES: PERRLA, EOMI, conjunctiva normal, no discharge. ENT: Hearing grossly intact, normal oropharynx. RESPIRATORY: Clear breath sounds bilaterally. No wheezes, rales, or rhonchi. C/V: Regular rate and rhythm. S1 and S2 auscultated, no edema, peripheral pulses 2+ and intact throughout. pulses seem symmetrical and equal in all 4 extremities. ABD: Abd is soft, nontender, nondistended EXT: Normal range of motion, no obvious deformity SKIN: No rashes or lesions observed on exposed skin. NEURO: Alert and oriented x 4. Cranial nerves II-XII intact. No focal sensory or strength deficits. Limitations: no limitations Course Vital Signs 10/13/22 10/13/22 10:10 10:43 Temperature 97.9 F Pulse Rate 105 H Pulse Rate [ 97 Voltage Regulator Assembler ] Respiratory 18 Rate Blood Pressure 128/56 O2 Sat by Pulse 97 Oximetry Medical Decision Making - Medical Decision Making Was pt. sent in by a medical professional or institution (, PA, ELECTRIC GAS APPLIANCES DEMONSTRATOR, urgent care, hospital, or alf...) When possible be specific @ -No Did you speak to anyone other than the patient for history (EMS, parent, family, police, friend...)? What history was obtained from this source @ -No Did you review nursing and triage notes (agree or disagree)? Why? @ -I reviewed and agree with nursing and triage notes Were old charts reviewed (outside hosp., previous admission, EMS record, old EKG, old radiological studies, urgent care reports/EKG's, alf records)? Report findings @ -Old EKGs reviewed from November 2020 Differential Diagnosis (chest pain, altered mental status, abdominal pain women, abdominal pain men, vaginal bleeding, weakness, fever, dyspnea, syncope, headache, dizziness, GI bleed, back pain, seizure, CVA, palpatations, mental health, musculoskeletal)? @ -Differential Chest Pain: Stable Angina, Unstable Angina, STEMI, NSTEMI Aortic Dissection, Pneumothorax, Musculoskeletal, Esophageal Spasm GERD, Cholecystitis, Pancreatitis, Zoster, this is not meant to be an all-inclusive list. EKG interpreted by me (3pts min.). @ -As above X-rays interpreted by me (1pt min.). @ -Chest x-ray reveals no obvious acute cardio pulmonary process. CT interpreted by me (1pt min.). @ -CT angiogram of the aorta revealed no evidence of aortic dissection. U/S interpreted by me (1pt. min.). @ -None done What testing was considered but not performed or refused? (CT, X-rays, U/S, labs)? Why? @ -None What meds were considered but not given or refused? Why? @ -None Did you discuss the management of the patient with other professionals (professionals i.e. , PA, ELECTRIC GAS APPLIANCES DEMONSTRATOR, lab, RT, psych nurse, director social service, benefits analyst, teacher, flight deck officer, leather case finisher)? Give summary @ -Yes Sound Dr. Rebolledo who accepted the patient. Was smoking cessation discussed for >3mins.? @ -No Was critical care preformed (if so, how long)? @ -Yes, 35 minutes Were there social determinants of health that impacted care today? How? (Homelessness, low income, unemployed, alcoholism, drug addiction, transportation, low edu. Level, literacy, decrease access to med. care, shelter, rehab)? @ -No Was there de-escalation of care discussed even if they declined (Discuss DNR or withdrawal of care, Hospice)? DNR status @ -No What co-morbidities impacted this encounter? (DM, HTN, Smoking, COPD, CAD, Cancer, CVA, ARF, Chemo, Hep., AIDS, mental health diagnosis, sleep apnea, morbid obesity)? @ -None Was patient admitted / discharged? Hospital course, mention meds given and route, prescriptions, significant lab abnormalities, going to OR and other pertinent info. @ -Based on patient's presentation and physical exam, I'm concerned for for cardiopulmonary etiology for the patient's current symptoms. With the strange complaining of extremity involvement with the chest pain that was a symmetrical which also has resolved, I'm concerned for possible dissection. We will obtain CTA to evaluate for aortic dissection in addition to cardiopulmonary labs. We'll hold aspirin at this time until the results are back. She will receive a small fluid bolus. Patient was in agreement this plan. She is currently asymptomatic with no chest discomfort or symptoms. EKG shows the T-wave inversions located in the inferior lateral distribution. No reciprocal changes. Repeat EKG showed no dynamic changes. Imaging was unremarkable including negative scan for aortic dissection. Patient's laboratory studies are remarkable for a slightly 1.28, as well as an elevated troponin of 1.1 and a hypomagnesemia of 1.1. Magnesium was replenished. Patient will be given 324mg aspirin at this time as well as started on a heparin drip for an NSTEMI. I updated the patient. She remains asymptomatic. She was in agreement with the plan for admission on the heparin drip. Cardiology is consulted. We will trend the troponin. Echo is ordered. I spoke with the admitting team, [facility] Dr. Rebolledo who accepted the patient. Undiagnosed new problem with uncertain prognosis? @ -No Drug Therapy requiring intensive monitoring for toxicity (Heparin, Nitro, Insulin, Cardizem)? @ -Heparin Were any procedures done? @ -No Diagnosis/symptom? @ -NSTEMI, LILLIAN, T-wave inversions Acute, or Chronic, or Acute on Chronic? @ -Acute Uncomplicated (without systemic symptoms) or Complicated (systemic symptoms)? @ -Complicated Side effects of treatment? @ -No Exacerbation, Progression, or Severe Exacerbation? @ -No Poses a threat to life or bodily function? How? (Chest pain, [place], [place], pneumonia, PE, COPD, DKA, ARF, appy, cholecystitis, CVA, Diverticulitis, Homicidal, Suicidal, threat to staff... and all critical care pts) @ -Potentially - Lab Data Result diagrams: 10/13/22 10:32 10/13/22 10:32 Lab Results 10/13/22 10/13/22 10/13/22 Range/Units 10:32 10:32 10:32 WBC 9.5 (3.8-10.6) k/uL RBC 4.40 (3.80-5.40) m/uL Hgb 12.4 (11.4-16.0) gm/dL Hct 36.9 (34.0-46.0) % MCV 83.9 (80.0-100.0) fL MCH 28.1 (25.0-35.0) pg MCHC 33.5 (31.0-37.0) g/dL RDW 12.8 (11.5-15.5) % Plt Count 311 (150-450) k/uL MPV 7.8 Neutrophils % 72 % Lymphocytes % 21 % Monocytes % 5 % Eosinophils % 1 % Basophils % 0 % Neutrophils # 6.8 (1.3-7.7) k/uL Lymphocytes # 2.0 (1.0-4.8) k/uL Monocytes # 0.4 (0-1.0) k/uL Eosinophils # 0.1 (0-0.7) k/uL Basophils # 0.0 (0-0.2) k/uL PT 10.6 (9.0-12.0) sec INR 1.0 (<1.2) APTT 24.8 (22.0-30.0) sec Sodium 135 L (137-145) mmol/L Potassium 4.3 (3.5-5.1) mmol/L Chloride 98 (98-107) mmol/L Carbon Dioxide 22 (22-30) mmol/L Anion Gap 15 mmol/L BUN 35 H (7-17) mg/dL Creatinine 1.28 H (0.52-1.04) mg/dL Est GFR (CKD-EPI)AfAm 50 (>60 ml/min/1.73 sqM) Est GFR (CKD-EPI)NonAf 43 (>60 ml/min/1.73 sqM) Glucose 111 H (74-99) mg/dL Calcium 9.5 (8.4-10.2) mg/dL Magnesium 1.1 L (1.6-2.3) mg/dL Total Bilirubin 0.8 (0.2-1.3) mg/dL AST 68 H (14-36) U/L ALT 29 (4-34) U/L Alkaline Phosphatase 64 (38-126) U/L Troponin I (0.000-0.034) ng/mL NT-Pro-B Natriuret Pep pg/mL Total Protein 7.4 (6.3-8.2) g/dL Albumin 4.7 (3.5-5.0) g/dL 10/13/22 10/13/22 Range/Units 10:32 10:49 WBC (3.8-10.6) k/uL RBC (3.80-5.40) m/uL Hgb (11.4-16.0) gm/dL Hct (34.0-46.0) % MCV (80.0-100.0) fL MCH (25.0-35.0) pg MCHC (31.0-37.0) g/dL RDW (11.5-15.5) % Plt Count (150-450) k/uL MPV Neutrophils % % Lymphocytes % % Monocytes % % Eosinophils % % Basophils % % Neutrophils # (1.3-7.7) k/uL Lymphocytes # (1.0-4.8) k/uL Monocytes # (0-1.0) k/uL Eosinophils # (0-0.7) k/uL Basophils # (0-0.2) k/uL PT (9.0-12.0) sec INR (<1.2) APTT (22.0-30.0) sec Sodium (137-145) mmol/L Potassium (3.5-5.1) mmol/L Chloride (98-107) mmol/L Carbon Dioxide (22-30) mmol/L Anion Gap mmol/L BUN (7-17) mg/dL Creatinine (0.52-1.04) mg/dL Est GFR (CKD-EPI)AfAm (>60 ml/min/1.73 sqM) Est GFR (CKD-EPI)NonAf (>60 ml/min/1.73 sqM) Glucose (74-99) mg/dL Calcium (8.4-10.2) mg/dL Magnesium (1.6-2.3) mg/dL Total Bilirubin (0.2-1.3) mg/dL AST (14-36) U/L ALT (4-34) U/L Alkaline Phosphatase (38-126) U/L Troponin I 1.100 H* (0.000-0.034) ng/mL NT-Pro-B Natriuret Pep 5930 pg/mL Total Protein (6.3-8.2) g/dL Albumin (3.5-5.0) g/dL - EKG Data -: EKG Interpreted by Me EKG Comments: 12-lead Electrocardiogram Interpretation Note EKG was reviewed and interpreted by myself. 12-lead ECG performed at 1020 is interpreted by me as revealing normal sinus rhythm at a rate of 100 beats per minute. Bim is normal. KS interval is 181 ms ms, QRS duration is 81 ms, QTc is 438 ms.. There is T-wave inversions that appear acute in leads II, III, aVF, V3 through V6. No reciprocal changes. No significant ST segment depressions or elevations.. R wave progression across the precordium was satisfactory. This is concerning for ischemia. 12-lead Electrocardiogram Interpretation Note EKG was reviewed and interpreted by myself. 12-lead ECG performed at 1105 is interpreted by me as revealing normal sinus rhythm at a rate of 92 beats per minute. Bim is normal. KS intervals 185 ms, QRS duration is 82 ms, QTc is 455 ms.. T-wave inversions once again noted in leads II, III, aVF as well as V3 through V6. No dynamic changes from prior EKG [address] segment changes at this time. R wave progression across the precordium was satisfactory. This EKG is still concerning for ischemia with the T-wave inversions.. Critical Care Time Critical Care Time: Yes Total Critical Care Time: 35 Critical Care Time: Upon my evaluation, this patient had a high probability of imminent or life- threatening deterioration due to NSTEMI, heparin initiation, which required my direct attention, intervention, and personal management. I have personally provided 35 minutes of critical care time exclusive of time spent on separately billable procedures. Time includes review of laboratory data, radiology results, discussion with consultants, and monitoring for potential decompensation. Interventions were performed as documented in my note. Disposition Clinical Impression: T wave inversion in EKG, Elevated troponin, NSTEMI (non-ST elevated myocardial infarction), Hypomagnesemia Disposition: ADMITTED IP TO THIS HOSP Condition: Serious Time of Disposition: 11:45
[2022-10-13] MEDS: HEPARIN SOD,PORK IN 0.45% NACL 25,000 UNIT in 0.45% NACL 1 250ML.BAG IV SCH (12:02)
[2022-10-13] MEDS ORDERED: NALOXONE 0.4 MG/ML 1 ML VIAL IV PRN (12:13)
[2022-10-13] MEDS: MAGNESIUM SULFATE-D5W PMX 1 GM in DEXTROSE/WATER 1 100ML.BAG IVPB SCH ×4 (12:53→21:57)
[2022-10-13] MEDS ORDERED: ALBUTEROL NEBULIZED 2.5 MG/3 ML INHALATION PRN (15:31)
--- NOTE | 2022-10-13 15:31 | P.HPIM ---
History of Present Illness H&P Date: 10/13/22 History of Presenting Illness: Patient is a very pleasant 67-year-old female with a past medical history of hypertension, hyperlipidemia, lung cancer status post right lobectomy, COPD, and GERD. She presented to the emergency department with a chief complaint of chest pain. Patient reports midsternal chest pain/discomfort beginning on Thursday. Patient reports his pain worsens with exertion. She states pain felt as a pressure/achy sensation to midsternal chest radiating into her back and left anterior chest. Patient states this is accompanied by mild shortness of breath and overall fatigue/weakness. She denies having any headache, lightheadedness, dizziness, cough or congestion, fevers or chills, nausea or vomiting, abdominal pain, or experiencing any noted weakness/tingling/swelling in her extremities. She states she waited to come into the emergency department because she had an important brunch to prepare for on Thursday with her children. Patient underwent full evaluation in the emergency department. EKG was completed showi ng normal sinus rhythm and 92 bpm with inferior, lateral, and anterior T-wave abnormalities with T-wave inversion in leads 2, 3, aVF, and V2 through V6 this new onset T-wave inversion is a new finding when compared to EKG completed 11/16/20 showing normal sinus rhythm at 87 bpm with no noted T-wave or ST abnormalities showing no signs of ischemia.. Chest x-ray negative for acute cardiopulmonary process. CTA aorta chest/abdomen/pelvis was completed showing no acute abnormality of the aorta. Labs completed and reviewed. CBC and coags were unremarkable. BMP revealing an acute kidney injury with BUN of 35, creatinine 1.28, and GFR 43 with baseline creatinine of 0.7. Magnesium 1.1. Troponin elevated at 1.100 and proBNP is 5930. Magnesium was replaced, aspirin was administered, patient started on heparin infusion. Discussed plan of care with ED physician in detail. Patient admitted to cardiac stepdown unit under our services with consultation to cardiology. Review of systems: Pertinent positives and negatives as discussed in HPI, a complete review of systems was performed and all other systems are negative. Physical exam: Vital signs reviewed and stable. General: Nontoxic, no distress and appears stated age. Derm: Skin warm and dry, normal coloration for ethnicity. Head: Atraumatic, normocephalic and symmetric. Eyes: EOMs intact, no lid lag, and anicteric sclera Mouth: no lip lesions, mucus membranes moist Cardiovascular: regular rate and rhythm with normal S1S2, systolic murmur, positive posterior tibial pulses bilaterally, and cap refill < 2 seconds. Lungs: Respirations even, regular, and unlabored on room air. Lungs CTA bilaterally, no rhonchi, no rales, no wheezing, and no accessory muscle usage. Abdominal: soft, nontender to palpation, no guarding, no appreciable or ganomegaly Ext: ROM intact. No gross muscle atrophy, no edema, no contractures Neuro: Speech clear, face symmetrical and CN II-XII grossly intact with no noted focal neuro deficits Psych: Alert and oriented to person, place, time, and situation. Appropriate and pleasant affect. Assessment and Plan of Care: NSTEMI Ischemic changes on EKG Hypomagnesemia Hypertension Hyperlipidemia History of lung cancer status post right lobectomy COPD GERD -EKG was completed showing normal sinus rhythm and 92 bpm with inferior, lateral, and anterior T-wave abnormalities with T-wave inversion in leads 2, 3, aVF, and V2 through V6 this new onset T-wave inversion is a new finding when compared to EKG completed 11/16/20 showing normal sinus rhythm at 87 bpm with no noted T-wave or ST abnormalities showing no signs of ischemia upon personal review and interpretation. -Labs completed and reviewed. CBC and coags were unremarkable. -BMP revealing an acute kidney injury with BUN of 35, creatinine 1.28, and GFR 43 with baseline creatinine of 0.7. Magnesium 1.1. Troponin elevated at 1.100 and proBNP is 5930. -Chest x-ray negative for acute cardiopulmonary process. -CTA aorta chest/abdomen/pelvis was completed showing no acute abnormality of the aorta. -Magnesium was replaced, aspirin was administered, patient started on heparin infusion. -Discussed plan of care with ED physician in detail. -Patient admitted to cardiac stepdown unit under our services with consultation to cardiology. -Continue heparin infusion at 12 units/kg/hr -Cardiology consulted -Troponins to be trended. -Echocardiogram to be completed -Daily aspirin, metoprolol, and atorvastatin. The patient is admitted with an anticipated greater than 2 midnight stay for evaluation of NSTEMI CODE STATUS:Full code DVT prophylaxis: Heparin Discussed with: Patient and, RN, patient's daughters at bedside, ED physician Anticipated discharge date: Clinical course to determine Anticipated discharge place: Patient was seen independently by Nurse Practitioner. This document was prepared using [employer] dictation software. Please allow for errors in quality coordinator while rare they do occur. Desmond Garcia NP rendered care for this patient independently, reviewed the findings and plan as documented in the note above. I did not physically speak with or examine the patient on this date. Hypomagnesemia- Additional 2 grams of Mg now for a total of 4 grams A. fib with RVR- Cardio was notified and patient was started on a cardizem gtt. Continues on Heparin gtt Awaiting call back from Cardiology business systems consultant Past Medical History Past Medical History: Cancer, COPD, Diabetes Mellitus, GERD/Reflux, Hyperlipidemia, Hypertension, Liver Disease, Osteoarthritis (OA) Additional Past Medical History / Comment(s): hx hepatic encephalopathy- no issues since 2012 and she has stopped drinking since that time, skin cancer, hiatal hernia, nodule rt middle lobe -CANCER History of Any Multi-Drug Resistant Organisms: None Reported Date of last positivie culture/infection: 2012 MDRO Source:: left arm Past Surgical History: Tubal Ligation Additional Past Surgical History / Comment(s): Removal of skin CA, RT MIDDLE LOBECTOMY, RT HAND SMALL FINGER TENDON REPAIR, COLONOSCOPY, Past Anesthesia/Blood Transfusion Reactions: No Reported Reaction Additional Past Anesthesia/Blood Transfusion Reaction / Comment(s): never had general anesthesia Past Psychological History: Anxiety, Depression Smoking Status: Former smoker Past Alcohol Use History: None Reported Past Drug Use History: None Reported - Past Family History Father Family Medical History: Cancer Mother Family Medical History: CVA/TIA, Diabetes Mellitus Sister(s) Family Medical History: Cancer Medications and Allergies Home Medications Medication Instructions Recorded Confirmed Type Omeprazole 20 mg PO DAILY 11/10/13 10/13/22 History Albuterol Sulfate [Proair Hfa] 2 puff INHALATION RT-Q6H PRN 11/20/20 10/13/22 History Aspirin [Adult Low Dose Aspirin EC] 81 mg PO DAILY 11/20/20 10/13/22 History Atorvastatin [Lipitor] 20 mg PO HS 11/20/20 10/13/22 History Montelukast [Singulair] 10 mg PO HS 11/20/20 10/13/22 History Multivitamins, Thera [Multivitamin 1 tab PO DAILY 11/20/20 10/13/22 History (formulary)] [place]-3 Fatty Acids/Fish Oil [Fish 1 cap PO DAILY 11/20/20 10/13/22 History Oil 1,000 mg Softgel] Acetaminophen Tab [Tylenol] 1,000 mg PO Q6HR PRN tab 11/23/20 10/13/22 Rx Loratadine [Claritin] 10 mg PO DAILY 05/02/22 10/13/22 History Olmesartan/Hydrochlorothiazide 1 tab PO DAILY 05/02/22 10/13/22 History [Olmesartan-Hctz 40-12.5 mg Tab] metFORMIN HCL 500 mg PO BID 05/02/22 10/13/22 History Cholecalciferol [Vitamin D3 (125 125 mcg PO DAILY 10/13/22 10/13/22 History Mcg = 5000 Iu)] Allergies Allergy/AdvReac Type Severity Reaction Status Date / Time No Known Allergies Allergy Verified 10/13/22 12:07 Physical Exam Osteopathic Statement: *. No significant issues noted on an osteopathic structural exam other than those noted in the History and Physical/Consult. Vitals: Vital Signs Temp Pulse Pulse Resp BP Pulse Ox 10/13/22 10:43 97 10/13/22 10:10 97.9 F 105 H 18 128/56 97 Intake and Output 10/12/22 10/13/22 10/13/22 22:59 06:59 14:59 Other: Weight 72.575 kg Results CBC & Chem 7: 10/13/22 10:32 10/13/22 10:32 Labs: Abnormal Lab Results - Last 24 Hours (Table) 10/13/22 10/13/22 Range/Units 10:32 10:32 Sodium 135 L (137-145) mmol/L BUN 35 H (7-17) mg/dL Creatinine 1.28 H (0.52-1.04) mg/dL Glucose 111 H (74-99) mg/dL Magnesium 1.1 L (1.6-2.3) mg/dL AST 68 H (14-36) U/L Troponin I 1.100 H* (0.000-0.034) ng/mL
[2022-10-13 16:32] LABS: Glucose,Whole Blood 178 mg/dL (70-110)
[2022-10-13] MEDS ORDERED: DILTIAZEM DRIP BOLUS FROM BAG 1 MG SOLN IV ONE (16:53)
[2022-10-13] MEDS ORDERED: DILTIAZEM 125 MG in SODIUM CHLORIDE 0.9% 100 ML IV SCH (18:00)
[2022-10-13] MEDS ORDERED: DEXTROSE 50% SYRINGE 50 ML IVP PRN ×2 (19:41)
[2022-10-13 19:55] LABS: Glucose,Whole Blood 125 mg/dL (70-110)
[2022-10-13] MEDS: ATORVASTATIN 80 MG TAB PO SCH (20:20)
[2022-10-13] MEDS: MONTELUKAST 10 MG TAB PO SCH (20:20)
[2022-10-13] MEDS: METOPROLOL TARTRATE 12.5 MG TAB PO SCH (20:21)
[2022-10-13] MEDS: NITROGLYCERIN OINT 1 INCH/GM PACKET TOPICAL SCH (20:23)
[2022-10-13] MEDS: INSULIN ASPART (NovoLOG) 100 UNIT/ML VIAL SQ SCH (20:23)
[2022-10-13] MEDS ORDERED: ATORVASTATIN 20 MG TAB PO SCH (21:00)
[2022-10-13] MEDS ORDERED: METOPROLOL TARTRATE 12.5 MG TAB PO SCH (21:00)
[2022-10-14] MEDS: NITROGLYCERIN OINT 1 INCH/GM PACKET TOPICAL SCH ×3 (00:10→23:56)
[2022-10-14 06:09] LABS: Glucose,Whole Blood 114 mg/dL (70-110)
[2022-10-14] MEDS: INSULIN ASPART (NovoLOG) 100 UNIT/ML VIAL SQ SCH ×4 (06:25→20:55)
[2022-10-14 07:50] LABS: Basophils % (A) 1 %; Eosinophils # (A) 0.1 k/uL (0-0.7); Eosinophils % (A) 2 %; HCT 35.3 % (34.0-46.0); HGB 11.6 gm/dL (11.4-16.0); Lymphocytes # (A) 1.9 k/uL (1.0-4.8); Lymphocytes % (A) 31 %; MCH 28.1 pg (25.0-35.0); MCHC 32.7 g/dL (31.0-37.0); MCV 85.8 fL (80.0-100.0); Mean Platelet Volume 7.9; Monocytes # (A) 0.3 k/uL (0-1.0); Monocytes % (A) 5 %; Neutrophils # (A) 3.7 k/uL (1.3-7.7); Neutrophils % (A) 59 %; Platelet Count 273 k/uL (150-450); RBC 4.12 m/uL (3.80-5.40); RDW 12.8 % (11.5-15.5); WBC 6.3 k/uL (3.8-10.6)
[2022-10-14] MEDS ORDERED: ASPIRIN 325 MG TAB PO STA (07:56)
[2022-10-14] MEDS ORDERED: NITROGLYCERIN SL TABS 0.4 MG TAB SUBLINGUAL PRN (07:56)
[2022-10-14] MEDS ORDERED: ALPRAZolam 0.25 MG TAB PO PRN (07:56)
[2022-10-14] MEDS ORDERED: ATORVASTATIN 80 MG TAB PO STA (07:56)
[2022-10-14] MEDS ORDERED: ALPRAZolam 0.5 MG TAB PO PRN (07:56)
[2022-10-14 08:12] LABS: Prothrombin Time 10.4 sec (9.0-12.0)
[2022-10-14] MEDS: ASPIRIN 81 MG PO SCH (08:13)
[2022-10-14] MEDS: METOPROLOL TARTRATE 12.5 MG TAB PO SCH ×2 (08:17→20:56)
[2022-10-14] MEDS: PANTOPRAZOLE 40 MG TABLET PO SCH (08:17)
[2022-10-14 09:08] LABS: Magnesium 2.1 mg/dL (1.6-2.3)
[2022-10-14] MEDS ORDERED: VERAPAMIL 2.5 MG/ML 2 ML AMP ONE (09:25)
--- NOTE | 2022-10-14 09:28 | P.PN ---
Subjective Progress Note Date: 10/14/22 No new complaints at this time. Chest pain and palpitations have resolved. Trops trending down. Gen: awake, alert HEENT: normocephalic, atraumatic, good hearing acuity, moist mucous membranes Resp: good air exchange, breathing comfortably with no accessory muscle use CVS: good distal perfusion x 4, GI: soft, NTTP, ND : no SPT, no CVAT, vu catheter not present MSK: no pitting edema, no clubbing Neuro: non-focal, moving all extremities Psych: cooperative, euthymic mood Hospital course: Patient is a very pleasant 67-year-old female with a past medical history of hyp ertension, hyperlipidemia, lung cancer status post right lobectomy, COPD, and GERD. She presented to the emergency department with a chief complaint of chest pain. Patient underwent full evaluation in the emergency department. EKG was completed showing normal sinus rhythm and 92 bpm with inferior, lateral, and anterior T-wave abnormalities with T-wave inversion in leads 2, 3, aVF, and V2 through V6 this new onset T-wave inversion is a new finding when compared to EKG completed 11/16/20 showing normal sinus rhythm at 87 bpm with no noted T-wave or ST abnormalities showing no signs of ischemia.. Chest x-ray negative for acute cardiopulmonary process. CTA aorta chest/abdomen/pelvis was completed showing no acute abnormality of the aorta. Labs completed and reviewed. CBC and coags were unremarkable. BMP revealing an acute kidney injury with BUN of 35, creatinine 1.28, and GFR 43 with baseline creatinine of 0.7. Magnesium 1.1. Troponin elevated at 1.100 and proBNP is 5930. Magnesium was replaced, aspirin was administered, patient started on heparin infusion. Discussed plan of care with ED physician in detail. Patient admitted to cardiac stepdown unit under our services with consultation to cardiology. Assessment: NSTEMI Ischemic changes on EKG Hypomagnesemia Hypertension Hyperlipidemia History of lung cancer status post right lobectomy COPD GERD Plan: Today, patient is afebrile, 111/70, heart rate 72, 96% on room air. CBC is reviewed and normal. Chemistries are reviewed and normal. Magnesium was 2.1. Troponin trended from 2.1-1.89 Case discussed with cardiology, patient will undergo left heart catheterization today Order placed for aspirin 81 mg daily Continue atorvastatin 80 mg daily at bedtime Continue heparin drip, monitor PTT for toxicity Continue metoprolol 12.5 mg twice a day Continue nitroglycerin 0.4 mg sublingual every 5 minutes when necessary for chest pain Patient is full code DVT prophylaxis is covered with therapeutic heparin Objective - Vital Signs Vital signs: Vital Signs Temp 97.5 F L 10/14/22 08:00 Pulse 72 10/14/22 08:00 Resp 20 10/14/22 08:00 BP 111/70 10/14/22 08:00 Pulse Ox 98 10/14/22 09:00 FiO2 Intake & Output 10/13/22 10/14/22 10/14/22 18:59 06:59 18:59 Intake Total 180 83.368 Output Total 0 Balance 180 83.368 Weight 72.575 kg 73 kg Intake: Intake, IV Titration 83.368 Amount Diltiazem 125 mg In 20.083 Sodium Chloride 0.9% 100 ml @ 7.5 MG/HR 7.5 mls/hr IV .[id number] [facility] Rx#: [id number] Heparin Sod,Pork in 0.45% 63.285 NaCl 25,000 unit In 0.45 % NaCl 1 250ml.bag @ 12 UNITS/KG/HR 8.709 mls/hr IV .Q24H [facility]ETTE Rx#: [id number] Oral 180 Output: Stool 0 Other: Voiding Method Toilet Toilet # Voids 1 - Labs CBC & Chem 7: 10/14/22 07:12 10/14/22 07:12 Labs: Abnormal Lab Results - Last 24 Hours (Table) 10/13/22 10/13/22 10/13/22 Range/Units 10:32 10:32 15:31 APTT (22.0-30.0) sec Sodium 135 L (137-145) mmol/L BUN 35 H (7-17) mg/dL Creatinine 1.28 H (0.52-1.04) mg/dL Glucose 111 H (74-99) mg/dL POC Glucose (mg/dL) (70-110) mg/dL Magnesium 1.1 L (1.6-2.3) mg/dL AST 68 H (14-36) U/L Troponin I 1.100 H* 2.100 H* (0.000-0.034) ng/mL 10/13/22 10/13/22 10/13/22 Range/Units 16:30 17:56 17:56 APTT 60.5 H (22.0-30.0) sec Sodium (137-145) mmol/L BUN (7-17) mg/dL Creatinine (0.52-1.04) mg/dL Glucose (74-99) mg/dL POC Glucose (mg/dL) 178 H (70-110) mg/dL Magnesium (1.6-2.3) mg/dL AST (14-36) U/L Troponin I 1.890 H* (0.000-0.034) ng/mL 10/13/22 10/14/22 10/14/22 Range/Units 19:53 06:07 07:12 APTT (22.0-30.0) sec Sodium 135 L (137-145) mmol/L BUN 22 H (7-17) mg/dL Creatinine (0.52-1.04) mg/dL Glucose 112 H (74-99) mg/dL POC Glucose (mg/dL) 125 H 114 H (70-110) mg/dL Magnesium (1.6-2.3) mg/dL AST (14-36) U/L Troponin I (0.000-0.034) ng/mL
[2022-10-14] MEDS ORDERED: SODIUM CHLORIDE 0.9% 1,000 ML IV ONE ×2 (10:00→10:50)
[2022-10-14] MEDS ORDERED: MIDAZOLAM 2 MG/2 ML VIAL IVP ONE (10:10)
[2022-10-14] MEDS ORDERED: LIDOCAINE 1% INJ 10MG/ML (5 ML VIAL-PF) SQ ONE (10:14)
[2022-10-14] MEDS ORDERED: LIDOCAINE 1% INJ 10MG/ML (20 ML MDV) ONE (10:18)
[2022-10-14] MEDS ORDERED: fentaNYL (PF) 50 MCG/ML 2 ML AMP ONE (10:31)
[2022-10-14] MEDS ORDERED: fentaNYL (PF) 50 MCG/ML 2 ML AMP IVP ONE (10:33)
[2022-10-14] MEDS ORDERED: IOPAMIDOL-370 100ML BTL INJ ONE (10:45)
[2022-10-14] MEDS ORDERED: RX INFO: IV CONTRAST WAS GIVEN 1 EACH MISC MISCELLANE PRN (10:52)
[2022-10-14 11:46] LABS: Glucose,Whole Blood 121 mg/dL (70-110)
[2022-10-14 11:58] LABS: Calcium 8.4 mg/dL (8.4-10.2); Potassium 4.4 mmol/L (3.5-5.1)
--- NOTE | 2022-10-14 12:17 | CONS ---
CONSULTATION HISTORY OF PRESENT ILLNESS: This is a 67-year-old lady with a history of hypertension, type 2 diabetes, smoking, COPD, and also hyperlipidemia. She has a history of lung cancer, and in 2020, she had a resection of her right middle lobe performed by Dr. Cox with a robotic-assisted thoracoscopic right middle lobectomy with mediastinal lymph node dissection. This was performed in November 2020. Since then, she stopped smoking for a while but began smoking again. This Thursday, she started having an uncomfortable feeling in the chest and shortness of breath, but she did not think too much of it. On Thursday, she did her usual thing during the day with the help of her daughter, but yesterday, she began feeling short of breath and felt her heart racing, came into the hospital, was found to be in atrial fibrillation with a rapid ventricular rate and was started on a Cardizem drip. Troponins also showed some elevation, and she was treated with intravenous heparin. EKG demonstrated precordial ST and T-wave abnormalities suggestive of a non- ST-elevation FL. Echo early this morning revealed anteroapical hypokinesia suggestive of apical ballooning syndrome. She was advised cardiac catheterization after due discussion because of elevated troponin, EKG changes, and also chest discomfort suggestive of myocardial ischemia. RELEVANT PAST MEDICAL HISTORY: 1. Lung cancer with a right middle lobe lobectomy performed in November 2020. 2. Smoking and COPD. 3. Hypertension. 4. Hyperlipidemia. 5. Type 2 diabetes mellitus. ALLERGIES: None. MEDICATIONS: 1. Metformin 500 mg b.i.d. 2. Olmesartan-hydrochlorothiazide 40-12.5 daily. 3. Aspirin 81 mg daily. 4. Lipitor 20 mg daily. 5. Singulair 10 mg daily. 6. Omeprazole 20 mg daily. 7. Albuterol inhaler. PHYSICAL EXAMINATION: VITAL SIGNS: Blood pressure is 110/70. Pulse rate is about 70 per minute, regular. HEENT: Unremarkable. Fundus was not examined by me. NECK: Supple. JVD 1 cm. No carotid bruit. HEART: Reveals S1 and S2 heard normally. No significant rub, murmur, or gallop. LUNGS: Reveal diminished bilateral air entry. ABDOMEN: Soft. EXTREMITIES: Lower extremities reveal diminished pulses. CENTRAL NERVOUS SYSTEM: Normal. DIAGNOSTIC STUDIES: EKG revealed sinus mechanism with ST and T-wave abnormality in leads V2 to V6 suggestive of a [id number] FL. LABORATORY DATA: Reveal elevated troponin of up to 2.1 and then came back this morning to 1.8. IMPRESSION: 1. 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 2. Hypertension. 3. Hyperlipidemia. 4. Type 2 diabetes. 5. Smoking and chronic obstructive pulmonary disease. 6. History of lung cancer with a right middle lobectomy in 2020. RECOMMENDATIONS: I am recommending cardiac catheterization. Continue IV heparin and beta-blockers. Proceed with cardiac catheterization; based on finding, intervention. Discussed my thoughts in detail with the patient and also spoke to her daughter by phone. MMMEGANL / KRISTENN: [id number] /
--- NOTE | 2022-10-14 12:33 | CC ---
CARDIAC CATHETERIZATION REPORT DATE OF SERVICE: 10/14/2022. PROCEDURES PERFORMED: Left heart catheterization and coronary angiography. PERFORMED BY: Dr. Benedict Slade. Moderate conscious sedation time was 33 minutes. The patient was administered Versed and fentanyl. Oxygen saturation, hemodynamics, and EKG were monitored closely. CLINICAL INFORMATION: Ms. Tripp Ramos is a 67-year-old lady presented to the hospital with episode of chest pain, shortness of breath, palpitation, was in atrial fibrillation transiently, converted to sinus rhythm, was found to have a troponin elevation, [id number] MS, and clinical picture of apical ballooning syndrome. She was advised cardiac catheterization. Risks, benefits, options, and rationale were explained. PROCEDURE NOTE: Under local anesthesia and strict aseptic precautions, I attempted access from the right radial, and I also used ultrasound, but the pulse was very feeble and was behind the vein. I, therefore, switched over to the femoral approach. With a micropuncture needle technique, a 6-Thai introducer was placed in the right femoral artery under strict aseptic precautions and local anesthesia. Using standard Candida catheters, I performed coronary angiography, and the same right catheter was used to check LV pressure, but LV-gram was not performed. The sheath was taken out, and Angio-Seal device was used to secure hemostasis. A pressure band was then applied to the right radial site. The patient tolerated the procedure well without complication. Findings were discussed with the patient as well as her daughter. CARDIAC CATHETERIZATION FINDINGS: The left ventricular end-diastolic pressure was about 17 to 18 mmHg without any gradient across aortic valve. CORONARY ANGIOGRAPHY FINDINGS: RIGHT CORONARY ARTERY: Large dominant vessel, in the proximal portion has mild calcification, 35% narrowing in the proximal portion just after the ostium. The vessel distally bifurcates into large PDA and PLV, both of which supply a sizable amount of myocardium. No significant disease in the distal portion of the RCA, but the proximal portion has a 35% narrowing. LEFT MAIN CORONARY ARTERY: This is a long, patent, disease-free vessel that bifurcates into LAD and circumflex. LEFT ANTERIOR DESCENDING CORONARY ARTERY: Good-caliber vessel, extends along the anterior wall. In the proximal one-third, there is an area of about 40% narrowing, after which, the caliber improves, and it gives off a diagonal branch and then runs all the way to the apex supplying a sizable amount of myocardium. Mid LAD, therefore, has a 40% narrowing, and after the narrowing, there is an area of ectasia and appears larger. The vessel runs all the way to the apex. No other significant disease. There is a diagonal branch, which is free of significant disease. Mid LAD, therefore, has a 40% narrowing. LEFT POSTERIOR CIRCUMFLEX CORONARY ARTERY: Nondominant vessel, minor irregularities, runs laterally, tortuous vessel. No significant disease. LEFT VENTRICULOGRAM: Not performed. FINAL IMPRESSION: This patient has elevated filling pressures, no gradient. Right-dominant system with 35% proximal right coronary artery. Mid/proximal left anterior descending has a 40% lesion. No significant disease in circumflex. Left ventriculogram was not performed. RECOMMENDATIONS: Findings were discussed with the patient and family. Continued medical therapy with risk factor modification including statins, beta-blockers, and losartan was advised. The patient will be observed closely for the next 24 to 48 hours. Prognosis remains guarded. Advised to quit smoking. MMODL / IJN: [id number] /
[2022-10-14] MEDS: SODIUM CHLORIDE 0.9% 1,000 ML IV SCH ×4 (12:50→23:16)
--- NOTE | 2022-10-14 13:44 | CA ---
Transthoracic Echo Report Name: Tripp Ramos Age: 67 Gender: F : 1955 Exam Date: 10/13/2022 14:38 Exam Location: [facility] Ht (in): Wt (lb): Ordering Physician: Baljit Jacome MD Attending/Referring Phys: [employer] Partition Erector Gema Rodriguez RDCS Procedure CPT: Indications: nstemi Cardiac Hx: Technical Quality: Fair Contrast 1: Total Dose (mL): Contrast 2: Total Dose (mL): MEASUREMENTS (Male / Female) Normal Values 2D ECHO LA Volume 51.1 cm??? 18 - 58 / 22 - 52 cm??? M-MODE Aortic Root Diameter MM 2.6 cm AV Cusp Separation MM 1.6 cm DOPPLER AV Peak Velocity 208.6 cm/s AV Peak Gradient 17.4 mmHg LVOT Peak Velocity 171.8 cm/s LVOT Peak Gradient 11.8 mmHg MV Area PHT 5.0 cm??? MR Peak Velocity 626.1 cm/s MR Peak Gradient 156.8 mmHg Mitral E Point Velocity 109.0 cm/s Mitral A Point Velocity 71.3 cm/s Mitral E to A Ratio 1.5 MV Deceleration Time 152.4 ms TR Peak Velocity 331.9 cm/s TR Peak Gradient 44.1 mmHg Right Atrial Pressure 3.0 mmHg Pulmonary Artery Systolic Pressu 47.1 mmHg Right Ventricular Systolic Press 47.1 mmHg PV Peak Velocity 157.3 cm/s PV Peak Gradient 9.9 mmHg PV Mean Velocity 94.1 cm/s PV Mean Gradient 4.4 mmHg PV Velocity Time Integral 25.6 cm FINDINGS Left Ventricle Atypical hypokineses, apex hypokinetic. Basal inferoseptum and basal anterolateral wall squeezing greater than 60%. Asymmetric left ventricular hypertrophy, specifically in the mid to basal septum. Abnormal left ventricular diastolic filling pattern. Left ventricular ejection fraction is estimated at 35-40%. Right Ventricle Normal right ventricular size. Normal right ventricular global systolic function. Moderate pulmonary hypertension. Right Atrium Normal right atrial size. Left Atrium Normal upper limit left atrial size. Mitral Valve Qzsxjnrb-jf-zaunoa mitral regurgitation. Aortic Valve Trileaflet aortic valve. No aortic regurgitation. No aortic stenosis. Tricuspid Valve Mmdf-tz-gtcaxkdj tricuspid regurgitation. Pulmonic Valve No pulmonic regurgitation. Pericardium No pericardial or pleural effusion. Echo free space anterior to the right ventricle likely represents a fat pad. Aorta Normal size aortic root and proximal ascending aorta. CONCLUSIONS Large anteroapical and septal akinesis with reduced LV systolic function ejection fraction 35-40% Previewed by: Dr. Elías Armas MD (Electronically Signed) Final Date: 14 October 2022 13:43
[2022-10-14 16:22] LABS: Glucose,Whole Blood 123 mg/dL (70-110)
[2022-10-14] MEDS: HEPARIN SOD,PORK IN 0.45% NACL 25,000 UNIT in 0.45% NACL 1 250ML.BAG IV SCH (18:11)
[2022-10-14 20:00] LABS: Glucose,Whole Blood 138 mg/dL (70-110)
[2022-10-14] MEDS: LOSARTAN 25 MG TAB PO SCH (20:55)
[2022-10-14] MEDS: ATORVASTATIN 80 MG TAB PO SCH (20:55)
[2022-10-14] MEDS: MONTELUKAST 10 MG TAB PO SCH (20:56)
[2022-10-15 05:55] LABS: Glucose,Whole Blood 114 mg/dL (70-110)
[2022-10-15] MEDS: INSULIN ASPART (NovoLOG) 100 UNIT/ML VIAL SQ SCH (06:03)
[2022-10-15] MEDS ORDERED: HEPARIN SODIUM,PORCINE 2,500 UNIT in SODIUM CHLORIDE 0.9% 250 ML IRRIGATION PRN (07:00)
[2022-10-15] MEDS ORDERED: HEPARIN SODIUM,PORCINE 10,000 UNIT in SODIUM CHLORIDE 0.9% 1,000 ML IRRIGATION PRN (07:00)
[2022-10-15] MEDS: NITROGLYCERIN OINT 1 INCH/GM PACKET TOPICAL SCH (08:20)
[2022-10-15] MEDS: LOSARTAN 25 MG TAB PO SCH (08:20)
[2022-10-15] MEDS: METOPROLOL TARTRATE 12.5 MG TAB PO SCH (08:21)
[2022-10-15] MEDS: PANTOPRAZOLE 40 MG TABLET PO SCH (08:21)
[2022-10-15] MEDS: ASPIRIN 81 MG PO SCH (08:21)
[2022-10-15 09:09] VITALS: BP 119/68; PULSE 86; RESP 17; TEMP 97.9
[2022-10-15 10:02] LABS: Basophils % (A) 0 %; Eosinophils # (A) 0.1 k/uL (0-0.7); Eosinophils % (A) 2 %; HCT 32.6 % (34.0-46.0); HGB 10.6 gm/dL (11.4-16.0); Lymphocytes # (A) 1.8 k/uL (1.0-4.8); Lymphocytes % (A) 34 %; MCH 28.8 pg (25.0-35.0); MCHC 32.6 g/dL (31.0-37.0); MCV 88.3 fL (80.0-100.0); Mean Platelet Volume 8.3; Monocytes # (A) 0.3 k/uL (0-1.0); Monocytes % (A) 5 %; Neutrophils # (A) 2.9 k/uL (1.3-7.7); Neutrophils % (A) 57 %; Platelet Count 214 k/uL (150-450); RBC 3.69 m/uL (3.80-5.40); RDW 13.1 % (11.5-15.5); WBC 5.1 k/uL (3.8-10.6)
--- NOTE | 2022-10-15 10:51 | P.PN ---
Subjective Progress Note Date: 10/15/22 History of present illness: This is a 67-year-old female with past medical history of hypertension, diabetes mellitus type 2, smoking, COPD, hyperlipidemia, lung cancer in 2020 status post resection of the right middle lobe performed by Dr. Cox with robotic-assisted thorascopic right middle lobectomy with mediastinal lymph node dissection. Patient has stopped smoking. Patient presented due to uncomfortable feeling in her chest and shortness of breath. Patient has been found to be in atrial fibri llation with RVR. Troponins were elevated the patient was started on a heparin drip initially. EKG demonstrated precordial ST and T-wave abnormalities suggestive of non-ST elevated myocardial infarction. Patient has undergone cardiac catheterization with Dr. FRANK Slade which revealed elevated filling pressures, no gradient. Right dominant system with 35% proximal right coronary artery. Mid/proximal left anterior descending has a 40% lesion. No significant disease and circumflex. Left ventriculogram was not performed. Echocardiogram reveals large anterior apical and septal akinesis with reduced LV systolic function EF 35-40% Physical examination: Gen: This is a 67-year-old female. She is resting in bed and appears to be comfortable and in no acute distress VS: reviewed HEENT: Head is atraumatic, normocephalic. Pupils equal, round. Sclerae is anicteric. LUNGS: Diminished bilaterally. No intercostal retractions. HEART: Regular rate and rhythm. No murmur. ABDOMEN: Soft No tenderness. Right groin has no tenderness, hematoma. EXTREMITIES: No pedal edema. Diminished pulses bilaterally dorsalis pedis NEUROLOGICAL: Patient is awake, alert and oriented x3. 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 Nurse practitioner note has been reviewed, I agree with documented findings and plan of care. Patient was seen and examined. Objective - Vital Signs Vital signs: Vital Signs Temp 97.9 F 10/15/22 08:20 Pulse 85 10/15/22 08:39 Resp 17 10/15/22 08:20 BP 119/68 10/15/22 08:20 Pulse Ox 99 10/15/22 08:34 FiO2 Intake & Output 10/14/22 10/15/22 10/15/22 18:59 06:59 18:59 Intake Total 1446.715 240 Output Total 0 Balance 1446.715 240 Weight 75.2 kg Intake: IV 300 Intake, IV Titration 786.715 Amount Heparin Sod,Pork in 0.45% 186.715 NaCl 25,000 unit In 0.45 % NaCl 1 250ml.bag @ 12 UNITS/KG/HR 8.709 mls/hr IV .Q24H [facility] Rx#: [id number] Sodium Chloride 0.9% 1, 450 000 ml @ 150 mls/hr IV . Q6H40M [facility] Rx#:[id number] Sodium Chloride 0.9% 1, 150 000 ml @ 75 mls/hr IV . [id number] [facility]TE Rx#:[id number] Oral 360 240 Output: Stool 0 Other: Voiding Method Toilet Toilet Toilet # Voids 1 1 - Labs CBC & Chem 7: 10/15/22 08:02 10/14/22 11:27 Labs: Abnormal Lab Results - Last 24 Hours (Table) 10/14/22 10/14/22 10/14/22 Range/Units 11:27 11:44 16:21 APTT (22.0-30.0) sec Sodium 136 L (137-145) mmol/L BUN 20 H (7-17) mg/dL Glucose 100 H (74-99) mg/dL POC Glucose (mg/dL) 121 H 123 H (70-110) mg/dL 10/14/22 10/14/22 10/15/22 Range/Units 19:58 20:03 05:54 APTT 44.1 H (22.0-30.0) sec Sodium (137-145) mmol/L BUN (7-17) mg/dL Glucose (74-99) mg/dL POC Glucose (mg/dL) 138 H 114 H (70-110) mg/dL
--- NOTE | 2022-10-15 11:03 | P.DS ---
Providers Date of admission: 10/13/22 12:13 Expected date of discharge: 10/15/22 Attending physician: Donnie Rebolledo MD Consults: 10/13/22 11:51 Consult Physician Urgent Consulting Provider: [facility] Consult Reason/Comments: nstemi Do you want consulting provider notified?: Yes Primary care physician: Allan Kasper [facility] Course: Assessment: NSTEMI Ischemic changes on EKG Hypomagnesemia Hypertension Hyperlipidemia History of lung cancer status post right lobectomy COPD GERD Hospital course: Patient is a very pleasant 67-year-old female with a past medical history of hypertension, hyperlipidemia, lung cancer status post right lobectomy, COPD, and GERD. She presented to the emergency department with a chief complaint of chest pain. Patient underwent full evaluation in the emergency department. EKG was completed showing normal sinus rhythm and 92 bpm with inferior, lateral, and anterior T-wave abnormalities with T-wave inversion in leads 2, 3, aVF, and V2 through V6 this new onset T-wave inversion is a new finding when compared to EKG completed 11/16/20 showing normal sinus rhythm at 87 bpm with no noted T-wave or ST abnormalities showing no signs of ischemia.. Chest x-ray negative for acute cardiopulmonary process. CTA aorta chest/abdomen/pelvis was completed showing no acute abnormality of the aorta. Labs completed and reviewed. CBC and coags were unremarkable. BMP revealing an acute kidney injury with BUN of 35, creatinine 1.28, and GFR 43 with baseline creatinine of 0.7. Magnesium 1.1. Troponin elevated at 1.100 and proBNP is 5930. Magnesium was replaced, aspirin was administered, patient started on heparin infusion. Discussed plan of care with ED physician in detail. Patient admitted to cardiac stepdown unit under our services with consultation to cardiology. Patient underwent angiogram which demonstrated 40% disease in the LAD, 30% disease in RCA, no obstructive disease. Patient was subsequently treated medically. During her hospitalization she also developed atrial fibrillation, was started on metoprolol and converted back to normal sinus rhythm. She was started on Apixiban outpatient. She was instructed to follow-up with cardiology. Her Lipitor was increased to 80 mg. Her hydrochlorothiazide was discontinued and her home started was converted to losartan. I spent 34 minutes coordinating this discharge on 10/15 Gen: awake, alert HEENT: normocephalic, atraumatic, good hearing acuity, moist mucous membranes Resp: good air exchange, breathing comfortably with no accessory muscle use CVS: good distal perfusion x 4, GI: soft, NTTP, ND : no SPT, no CVAT, vu catheter not present MSK: no pitting edema, no clubbing Neuro: non-focal, moving all extremities Psych: cooperative, euthymic mood Patient Condition at Discharge: Good Plan - Discharge Summary Discharge Rx Participant: No New Discharge Prescriptions: New Apixaban [Eliquis] 5 mg PO BID #60 tab Atorvastatin [Lipitor] 80 mg PO HS #30 tab Nitroglycerin Sl Tabs [Nitrostat] 0.4 mg SUBLINGUAL Q5M PRN #15 tab PRN Reason: Chest Pain Losartan [Cozaar] 12.5 mg PO DAILY #15 tab Metoprolol Tartrate [Lopressor] 12.5 mg PO BID #60 tab Continue Omeprazole 20 mg PO DAILY Albuterol Sulfate [Proair Hfa] 2 puff INHALATION RT-Q6H PRN PRN Reason: Shortness Of Breath Montelukast [Singulair] 10 mg PO HS Aspirin [Adult Low Dose Aspirin EC] 81 mg PO DAILY Acetaminophen Tab [Tylenol] 1,000 mg PO Q6HR PRN tab PRN Reason: Fever And/ Or Pain Multivitamins, Thera [Multivitamin (formulary)] 1 tab PO DAILY [place]-3 Fatty Acids/Fish Oil [Fish Oil 1,000 mg Softgel] 1 cap PO DAILY Loratadine [Claritin] 10 mg PO DAILY metFORMIN HCL 500 mg PO BID Cholecalciferol [Vitamin D3 (125 Mcg = 5000 Iu)] 125 mcg PO DAILY Discontinued Olmesartan/Hydrochlorothiazide [Olmesartan-Hctz 40-12.5 mg Tab] 1 tab PO DAILY Atorvastatin [Lipitor] 20 mg PO HS Discharge Medication List Omeprazole 20 mg PO DAILY 11/10/13 [History] Albuterol Sulfate [Proair Hfa] 2 puff INHALATION RT-Q6H PRN 11/20/20 [History] Aspirin [Adult Low Dose Aspirin EC] 81 mg PO DAILY 11/20/20 [History] Montelukast [Singulair] 10 mg PO HS 11/20/20 [History] Multivitamins, Thera [Multivitamin (formulary)] 1 tab PO DAILY 11/20/20 [History] [place]-3 Fatty Acids/Fish Oil [Fish Oil 1,000 mg Softgel] 1 cap PO DAILY 11/20/20 [History] Acetaminophen Tab [Tylenol] 1,000 mg PO Q6HR PRN tab 11/23/20 [Rx] Loratadine [Claritin] 10 mg PO DAILY 05/02/22 [History] metFORMIN HCL 500 mg PO BID 05/02/22 [History] Cholecalciferol [Vitamin D3 (125 Mcg = 5000 Iu)] 125 mcg PO DAILY 10/13/22 [History] Apixaban [Eliquis] 5 mg PO BID #60 tab 10/15/22 [Rx] Atorvastatin [Lipitor] 80 mg PO HS #30 tab 10/15/22 [Rx] Losartan [Cozaar] 12.5 mg PO DAILY #15 tab 10/15/22 [Rx] Metoprolol Tartrate [Lopressor] 12.5 mg PO BID #60 tab 10/15/22 [Rx] Nitroglycerin Sl Tabs [Nitrostat] 0.4 mg SUBLINGUAL Q5M PRN #15 tab 10/15/22 [Rx] Follow up Appointment(s)/Referral(s): Italo Victoria MD [STAFF PHYSICIAN] - 1 Week (following up with fast food delivery driver in [place]) Allan Kasper MD [Primary Care Provider] - 1-2 days (appointment made) Patient Instructions/Handouts: Heart Healthy Diet (DC), Heart Catheterization (DC) Activity/Diet/Wound Care/Special Instructions: Call [employer] @ to request a benefits investigation and find out about patient assistance program Discharge Disposition: HOME SELF-CARE
--- NOTE | 2022-10-23 15:18 | CDI ---
Documentation Clarification Form Date: 10/23/2022 3:04:31 PM From: Radha Mancia Admit Date: 10/13/2022 12:13:00 PM Patient Name: Tripp Ramos Visit Number: [id number] Discharge Date: 10/15/2022 11:29:00 AM ATTENTION: The Clinical Documentation Specialists (CDI) and [facility] Coding Staff appreciate your assistance in clarifying documentation. Please respond to the clarification below the line at the bottom and electronically sign. The CDI & [facility] Coding staff will review the response and follow-up if needed. Please note: Queries are made part of the Legal Health Record. If you have any questions, please contact the author of this message via ITS. Dr. Jazmin Cheng Conflicting documentation has been found in the medical record. As attending physician, please provide clarification. Progress Note 10/15 NSTEMI, probable apical ballooning syndrome Discharge Summary states NSTEMI no significant lesions were found on the cardiac cath History/Risk Factors: patient is a 67 year old female with a hx of HTN, HLD, lung cancer s/p right lobectomy, COPD and GERD. Clinical Indicators: presented with chest pain, chest x-ray negative, CTA- negative, BMP revealing LILLIAN, Troponin elevated at 1.100, 2.100, 1.890, cardiac cath and angiography demonstrated 40% disease in the LAD, 30% disease in the RCA, no obstructive disease. Patient also developed AFIB during her stay. Treatment: started on heparin infusion, underwent cardiac cath and angiography, metoprolol for AFIB, stated on apixiban outpatient, Lipitor was increased to 80mg, hydrochlorothiazide was d/bhargavi and converted to losartan Please clarify which diagnosis is most appropriate: [ ] NSTEMI with Takotsubo Syndrome [ ] NSTEMI only [x] Takotsubo Syndrome only- NSTEMI ruled out [ ] Other (please specify) [ ] Unable to determine MTDD
== END 2022-10-15 11:29 | disposition home or self-care (01) | DRG 287 ==
LOC: EC 10:00 → 3SCARD 12:13
PROVIDERS: ADMIT Student in an Organized Health Care Education/Training Program; ATTEND Student in an Organized Health Care Education/Training Program
PROC: 4A023N7 Measurement of Cardiac Sampling and Pressure, Left Heart, Percutaneous Approach (ICD-10-PCS; principal; 2022-10-14 09:00)
PROC: B2111ZZ Fluoroscopy of Multiple Coronary Arteries using Low Osmolar Contrast (ICD-10-PCS; principal; 2022-10-14 09:00)
DX: I51.81 Takotsubo syndrome (principal); N17.9 Acute kidney failure, unspecified; E83.42 Hypomagnesemia; I48.91 Unspecified atrial fibrillation; I10 Essential (primary) hypertension; K21.9 Gastro-esophageal reflux disease without esophagitis; E11.9 Type 2 diabetes mellitus without complications; E78.5 Hyperlipidemia, unspecified; K76.9 Liver disease, unspecified; F17.200 Nicotine dependence, unspecified, uncomplicated; M19.90 Unspecified osteoarthritis, unspecified site; J44.9 Chronic obstructive pulmonary disease, unspecified; I25.10 Atherosclerotic heart disease of native coronary artery without angina pectoris; F32.A Depression, unspecified; K44.9 Diaphragmatic hernia without obstruction or gangrene; F41.9 Anxiety disorder, unspecified; Z90.2 Acquired absence of lung [part of]; Z85.828 Personal history of other malignant neoplasm of skin; Z85.118 Personal history of other malignant neoplasm of bronchus and lung; Z79.899 Other long term (current) drug therapy; Z79.84 Long term (current) use of oral hypoglycemic drugs; Z79.82 Long term (current) use of aspirin
CPT/HCPCS: 36415; 71046; 71275; 74174; 80048; 80053; 83036; 83735; 83880; 84484; 85025; 85610; 85730; 93005; 93306; 93458; 94640; 94760; 96365; 96368; 96375; 99291

== ENCOUNTER → 2022-10-31 | Outpatient (CLI) | payer MEDICARE ==
--- NOTE | 2022-11-03 06:50 | MM ---
Reason for Exam: Screening (asymptomatic). Last screening mammogram was performed 12 month(s) ago. Patient History: Menarche at age 12. First Full-Term at age 21. Postmenopausal. Patient has history of breast feeding. Other cancer, age 65. Sister had ovarian cancer, age 46. Risk Values: Farzana 5 year model risk: 1.5%. NCI Lifetime model risk: 5.0%. Prior Study Comparison: 09/14/2013 Bilateral Screening Mammogram, [facility]. 10/22/2020 Bilateral Screening Mammogram, [facility]. 10/25/2021 Bilateral Screening Mammogram, [facility]. Tissue Density: The breast tissue is heterogeneously dense. This may lower the sensitivity of mammography. Findings: Analyzed By CAD. There are a few scattered benign-appearing round calcifications redemonstrated throughout the bilateral breasts. Benign appearing bilateral axillary lymph nodes are redemonstrated. There is no suspicious new group of microcalcifications or new suspicious mass in either breast. Overall Assessment: Benign, BI-RAD 2 Management: Screening Mammogram of both breasts in 1 year. . Patient should continue monthly self-breast exams. A clinical breast exam by your physician is recommended on an annual basis. This exam should not preclude additional follow-up of suspicious palpable abnormalities. Note on Farzana scores and lifetime risk: 1. A Farzana score greater than 3% is considered moderate risk. If this is the case, consider specialist referral to assess eligibility for a risk reducing agent. 2. If overall lifetime risk for the development of breast cancer is 20% or higher, the patient may qualify for future screening with alternating mammogram and breast MRI. Electronically signed and approved by: Sunny Palomo M.D.
== END | disposition home or self-care (01) ==
LOC: RADMAMWWP 07:08
PROVIDERS: ATTEND Family Medicine
DX: Z12.31 Encounter for screening mammogram for malignant neoplasm of breast (principal); Z78.0 Asymptomatic menopausal state
CPT/HCPCS: 77063; 77067

== ENCOUNTER 2022-12-16 15:44 | Emergency (ER) | payer MEDICARE, OTHER ==
[2022-12-16 16:28] VITALS: TEMP 98
[2022-12-16 17:13] LABS: Basophils % (A) 0 %; Eosinophils # (A) 0.2 k/uL (0-0.7); Eosinophils % (A) 2 %; HCT 39.8 % (34.0-46.0); HGB 12.9 gm/dL (11.4-16.0); Lymphocytes # (A) 1.9 k/uL (1.0-4.8); Lymphocytes % (A) 32 %; MCH 27.1 pg (25.0-35.0); MCHC 32.4 g/dL (31.0-37.0); MCV 83.6 fL (80.0-100.0); Mean Platelet Volume 8.2; Monocytes # (A) 0.4 k/uL (0-1.0); Monocytes % (A) 6 %; Neutrophils # (A) 3.4 k/uL (1.3-7.7); Neutrophils % (A) 56 %; Platelet Count 240 k/uL (150-450); RBC 4.77 m/uL (3.80-5.40); RDW 13.2 % (11.5-15.5)
[2022-12-16 17:23] LABS: ALT 26 U/L (4-34); AST 33 U/L (14-36); African American GFR (CKD) >90 (>60 ml/min/1.73 sqM); Albumin 4.5 g/dL (3.5-5.0); Alkaline Phosphatase 68 U/L (38-126); Anion Gap 11 mmol/L; Blood Urea Nitrogen 11 mg/dL (7-17); Calcium 9.4 mg/dL (8.4-10.2); Carbon Dioxide 27 mmol/L (22-30); Chloride 104 mmol/L (98-107); Glucose 142 mg/dL (74-99); Magnesium 1.8 mg/dL (1.6-2.3); Non-African American GFR(CKD) >90 (>60 ml/min/1.73 sqM); Potassium 3.8 mmol/L (3.5-5.1); Sodium 142 mmol/L (137-145); Total Bilirubin 0.6 mg/dL (0.2-1.3); Total Protein 7.1 g/dL (6.3-8.2)
--- NOTE | 2022-12-16 17:23 | XR ---
EXAMINATION TYPE: XR chest 2V DATE OF EXAM: 12/16/2022 5:16 PM COMPARISON: Chest radiographs from 10/13/2022 TECHNIQUE: XR chest 2V Frontal and lateral views of the chest. CLINICAL INDICATION:Female, 67 years old with history of dysrhythmia; FINDINGS: Lungs/Pleura: There is flattening of the diaphragm with increased lucency of the lungs. No evidence o f pneumothorax, pleural effusion or focal consolidation. Pulmonary vascularity: Unremarkable. Heart/mediastinum: Cardiomediastinal silhouette is unremarkable. Musculoskeletal: No acute osseous pathology. IMPRESSION: 1. No acute cardiopulmonary disease process. 2. COPD changes.
[2022-12-16 17:24] LABS: Partial Thromboplastin Time 27.1 sec (22.0-30.0); Prothrombin Time 10.5 sec (9.0-12.0)
[2022-12-16] MEDS ORDERED: carvediloL 3.125 MG TAB PO STA (17:30)
--- NOTE | 2022-12-16 17:32 | ED ---
General Adult HPI - General Chief complaint: Arrhythmia/Palpitations Stated complaint: Afib Time Seen by Provider: 12/16/22 17:18 Source: patient, RN notes reviewed, old records reviewed Mode of arrival: ambulatory Limitations: no limitations - History of Present Illness Initial comments: 67 -year-old female presenting for evaluation of palpitation. Patient had felt palpitations, racing heartbeat around 2 PM and had noted on her watch that her heart rate was elevated. She has a history of atrial fibrillation and is on Coreg and Eliquis. No chest pain. No dyspnea. Patient feels completely normal at the time my evaluation. No further palpitations. No complaints whatsoever. - Related Data Home Medications Medication Instructions Recorded Confirmed Omeprazole 20 mg PO DAILY 11/10/13 10/13/22 Albuterol Sulfate [Proair Hfa] 2 puff INHALATION RT-Q6H PRN 11/20/20 10/13/22 Aspirin [Adult Low Dose Aspirin EC] 81 mg PO DAILY 11/20/20 10/13/22 Montelukast [Singulair] 10 mg PO HS 11/20/20 10/13/22 Multivitamins, Thera [Multivitamin 1 tab PO DAILY 11/20/20 10/13/22 (formulary)] [place]-3 Fatty Acids/Fish Oil [Fish 1 cap PO DAILY 11/20/20 10/13/22 Oil 1,000 mg Softgel] Loratadine [Claritin] 10 mg PO DAILY 05/02/22 10/13/22 metFORMIN HCL 500 mg PO BID 05/02/22 10/13/22 Cholecalciferol [Vitamin D3 (125 125 mcg PO DAILY 10/13/22 10/13/22 Mcg = 5000 Iu)] Previous Rx's Medication Instructions Recorded Acetaminophen Tab [Tylenol] 1,000 mg PO Q6HR PRN tab 11/23/20 Apixaban [Eliquis] 5 mg PO BID #60 tab 10/15/22 Atorvastatin [Lipitor] 80 mg PO HS #30 tab 10/15/22 Losartan [Cozaar] 12.5 mg PO DAILY #15 tab 10/15/22 Metoprolol Tartrate [Lopressor] 12.5 mg PO BID #60 tab 10/15/22 Nitroglycerin Sl Tabs [Nitrostat] 0.4 mg SUBLINGUAL Q5M PRN #15 tab 10/15/22 Allergies Allergy/AdvReac Type Severity Reaction Status Date / Time No Known Allergies Allergy Verified 12/16/22 16:28 Review of Systems ROS Statement: Those systems with pertinent positive or pertinent negative responses have been documented in the HPI. ROS Other: All systems not noted in ROS Statement are negative. Past Medical History Past Medical History: Cancer, COPD, Diabetes Mellitus, GERD/Reflux, Hyperlipidemia, Hypertension, Liver Disease, Osteoarthritis (OA) Additional Past Medical History / Comment(s): hx hepatic encephalopathy- no issues since 2012 and she has stopped drinking since that time, skin cancer, hiatal hernia, nodule rt middle lobe -CANCER History of Any Multi-Drug Resistant Organisms: None Reported Date of last positivie culture/infection: 2012 MDRO Source:: left arm Past Surgical History: Tubal Ligation Additional Past Surgical History / Comment(s): Removal of skin CA, RT MIDDLE LOBECTOMY, RT HAND SMALL FINGER TENDON REPAIR, COLONOSCOPY, Past Anesthesia/Blood Transfusion Reactions: No Reported Reaction Additional Past Anesthesia/Blood Transfusion Reaction / Comment(s): never had general anesthesia Past Psychological History: Anxiety, Depression Smoking Status: Former smoker Past Alcohol Use History: None Reported Past Drug Use History: None Reported - Past Family History Father Family Medical History: Cancer Mother Family Medical History: CVA/TIA, Diabetes Mellitus Sister(s) Family Medical History: Cancer General Exam Limitations: no limitations General appearance: alert, in no apparent distress Head exam: Present: atraumatic, normocephalic Eye exam: Present: normal appearance, PERRL ENT exam: Present: normal exam Neck exam: Present: normal inspection. Absent: tenderness, meningismus Respiratory exam: Present: normal lung sounds bilaterally. Absent: respiratory distress, wheezes Cardiovascular Exam: Present: regular rate, normal rhythm GI/Abdominal exam: Present: soft. Absent: distended, tenderness, guarding Extremities exam: Present: normal inspection Neurological exam: Present: alert, oriented X3, CN II-XII intact, normal gait. Absent: motor sensory deficit Psychiatric exam: Present: normal affect, normal mood Skin exam: Present: warm, dry, intact. Absent: cyanosis, diaphoretic Course Vital Signs 12/16/22 12/16/22 16:24 17:37 Temperature 98.0 F Pulse Rate 91 85 Respiratory 20 18 Rate Blood Pressure 143/88 126/76 O2 Sat by Pulse 96 96 Oximetry Medical Decision Making - Medical Decision Making Was pt. sent in by a medical professional or institution (KEYANNA Cortes, CERTIFIER, urgent care, hospital, or half-way...) When possible be specific @ -[No] Did you speak to anyone other than the patient for history (EMS, parent, family, police, friend...)? What history was obtained from this source @ -[yes, patient's daughter Did you review nursing and triage notes (agree or disagree)? Why? @ -[I reviewed and agree with nursing and triage notes] Were old charts reviewed (outside hosp., previous admission, EMS record, old EKG, old radiological studies, urgent care reports/EKG's, half-way records)? Report findings @ -[review previous heart cath Differential Diagnosis (chest pain, altered mental status, abdominal pain women, abdominal pain men, vaginal bleeding, weakness, fever, dyspnea, syncope, headache, dizziness, GI bleed, back pain, seizure, CVA, palpatations, mental health, musculoskeletal)? @ -[Differential Palpitations Ventricular arrhythmias, atrial arrhythmias, myocardial infarction, anemia, thyrotoxicosis, electrolyte imbalance, hypokalemia, pulmonary embolism, pulmonar y disease, drugs, alcohol, anxiety, stress.... This is not meant to be an all-inclusive list. EKG interpreted by me (3pts min.). @ -[sinus rhythm rate of 89, OR interval 190, QRS duration 83, QTC 396, no ST segment elevation. X-rays interpreted by me (1pt min.). @ -[no acute cardiopulmonary findings, hyperinflation consistent with COPD CT interpreted by me (1pt min.). @ -[None done] U/S interpreted by me (1pt. min.). @ -[None done] What testing was considered but not performed or refused? (CT, X-rays, U/S, labs)? Why? @ -[None] What meds were considered but not given or refused? Why? @ -[None] Did you discuss the management of the patient with other professionals (professionals i.e. KEYANNA Cortes, CERTIFIER, lab, RT, psych nurse, medical social consultant, rehab trainer, teacher, commissioned defence force officer, case planner)? Give summary @ -[No] Was smoking cessation discussed for >3mins.? @ -[No] Was critical care preformed (if so, how long)? @ -[No] Were there social determinants of health that impacted care today? How? (Homelessness, low income, unemployed, alcoholism, drug addiction, transportation, low edu. Level, literacy, decrease access to med. care, correction, rehab)? @ -[No] Was there de-escalation of care discussed even if they declined (Discuss DNR or withdrawal of care, Hospice)? DNR status @ -[No] What co-morbidities impacted this encounter? (DM, HTN, Smoking, COPD, CAD, Cancer, CVA, ARF, Chemo, Hep., AIDS, mental health diagnosis, sleep apnea, morbid obesity)? @ -[atrial fibrillation Was patient admitted / discharged? Hospital course, mention meds given and route, prescriptions, significant lab abnormalities, going to OR and other pert inent info. @ -[patient with history of atrial fibrillation presents with likely episode of rapid atrial fibrillation which was resolved prior to arrival. EKG shows sinus rhythm. Patient remains in sinus rhythm on the monitor. She has no complaints. Chest x-ray laboratory testing was performed and was unremarkable including normal electrolytes and negative troponin. Patient eager for discharge and is in stable condition. 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 Undiagnosed new problem with uncertain prognosis? @ -[No] Drug Therapy requiring intensive monitoring for toxicity (Heparin, Nitro, Insulin, Cardizem)? @ -[No] Were any procedures done? @ -[No] Diagnosis/symptom? @ -[palpitations, likely rapid A. fib] Acute, or Chronic, or Acute on Chronic? @ -acute on chronic] Uncomplicated (without systemic symptoms) or Complicated (systemic symptoms)? @ -[complicated] Side effects of treatment? @ -[No] Exacerbation, Progression, or Severe Exacerbation? @ -[No] Poses a threat to life or bodily function? How? (Chest pain, USA, NH, pneumonia, PE, COPD, DKA, ARF, appy, cholecystitis, CVA, Diverticulitis, Homicidal, Suicidal, threat to staff... and all critical care pts) @ -[yes, arrhythmia] - Lab Data Result diagrams: 12/16/22 16:45 12/16/22 16:45 Lab Results 12/16/22 12/16/22 12/16/22 Range/Units 16:45 16:45 16:45 WBC 6.0 (3.8-10.6) k/uL RBC 4.77 (3.80-5.40) m/uL Hgb 12.9 (11.4-16.0) gm/dL Hct 39.8 (34.0-46.0) % MCV 83.6 (80.0-100.0) fL MCH 27.1 (25.0-35.0) pg MCHC 32.4 (31.0-37.0) g/dL RDW 13.2 (11.5-15.5) % Plt Count 240 (150-450) k/uL MPV 8.2 Neutrophils % 56 % Lymphocytes % 32 % Monocytes % 6 % Eosinophils % 2 % Basophils % 0 % Neutrophils # 3.4 (1.3-7.7) k/uL Lymphocytes # 1.9 (1.0-4.8) k/uL Monocytes # 0.4 (0-1.0) k/uL Eosinophils # 0.2 (0-0.7) k/uL Basophils # 0.0 (0-0.2) k/uL PT 10.5 (9.0-12.0) sec INR 1.0 (<1.2) APTT 27.1 (22.0-30.0) sec Sodium 142 (137-145) mmol/L Potassium 3.8 (3.5-5.1) mmol/L Chloride 104 (98-107) mmol/L Carbon Dioxide 27 (22-30) mmol/L Anion Gap 11 mmol/L BUN 11 (7-17) mg/dL Creatinine 0.67 (0.52-1.04) mg/dL Est GFR (CKD-EPI)AfAm >90 (>60 ml/min/1.73 sqM) Est GFR (CKD-EPI)NonAf >90 (>60 ml/min/1.73 sqM) Glucose 142 H (74-99) mg/dL Calcium 9.4 (8.4-10.2) mg/dL Magnesium 1.8 (1.6-2.3) mg/dL Total Bilirubin 0.6 (0.2-1.3) mg/dL AST 33 (14-36) U/L ALT 26 (4-34) U/L Alkaline Phosphatase 68 (38-126) U/L Troponin I (0.000-0.034) ng/mL Total Protein 7.1 (6.3-8.2) g/dL Albumin 4.5 (3.5-5.0) g/dL 12/16/22 Range/Units 16:45 WBC (3.8-10.6) k/uL RBC (3.80-5.40) m/uL Hgb (11.4-16.0) gm/dL Hct (34.0-46.0) % MCV (80.0-100.0) fL MCH (25.0-35.0) pg MCHC (31.0-37.0) g/dL RDW (11.5-15.5) % Plt Count (150-450) k/uL MPV Neutrophils % % Lymphocytes % % Monocytes % % Eosinophils % % Basophils % % Neutrophils # (1.3-7.7) k/uL Lymphocytes # (1.0-4.8) k/uL Monocytes # (0-1.0) k/uL Eosinophils # (0-0.7) k/uL Basophils # (0-0.2) k/uL PT (9.0-12.0) sec INR (<1.2) APTT (22.0-30.0) sec Sodium (137-145) mmol/L Potassium (3.5-5.1) mmol/L Chloride (98-107) mmol/L Carbon Dioxide (22-30) mmol/L Anion Gap mmol/L BUN (7-17) mg/dL Creatinine (0.52-1.04) mg/dL Est GFR (CKD-EPI)AfAm (>60 ml/min/1.73 sqM) Est GFR (CKD-EPI)NonAf (>60 ml/min/1.73 sqM) Glucose (74-99) mg/dL Calcium (8.4-10.2) mg/dL Magnesium (1.6-2.3) mg/dL Total Bilirubin (0.2-1.3) mg/dL AST (14-36) U/L ALT (4-34) U/L Alkaline Phosphatase (38-126) U/L Troponin I <0.012 (0.000-0.034) ng/mL Total Protein (6.3-8.2) g/dL Albumin (3.5-5.0) g/dL Disposition Clinical Impression: Atrial fibrillation, Palpitations Disposition: HOME SELF-CARE Condition: Good Instructions (If sedation given, give patient instructions): Heart Palpitations (ED) Is patient prescribed a controlled substance at d/c from ED?: No Referrals: Allan Kasper MD [Primary Care Provider] - 1-2 days Time of Disposition: 18:08
[2022-12-16 17:38] VITALS: RESP 18
[2022-12-16 18:26] VITALS: BP 136/68; PULSE 74
== END 2022-12-16 18:26 | disposition home or self-care (01) ==
LOC: EC 15:44
DX: I48.91 Unspecified atrial fibrillation (principal); E11.9 Type 2 diabetes mellitus without complications; I10 Essential (primary) hypertension; J44.9 Chronic obstructive pulmonary disease, unspecified; Z79.82 Long term (current) use of aspirin; Z79.84 Long term (current) use of oral hypoglycemic drugs; Z79.899 Other long term (current) drug therapy; Z87.891 Personal history of nicotine dependence
CPT/HCPCS: 36415; 71046; 80053; 83735; 84484; 85025; 85610; 85730; 93005; 99285

== ENCOUNTER → 2023-10-19 | Outpatient (CLI) | payer MEDICARE ==
[2023-10-19 09:06] LABS: African American GFR (CKD) >90 (>60 ml/min/1.73 sqM); Blood Urea Nitrogen 20 mg/dL (7-17); Non-African American GFR(CKD) >90 (>60 ml/min/1.73 sqM)
--- NOTE | 2023-10-19 10:04 | CT ---
EXAMINATION TYPE: CT chest w con CT DLP: 330.3 mGycm, Automated exposure control for dose reduction was used. DATE OF EXAM: 10/19/2023 9:28 AM COMPARISON: 05/09/2022, 10/13/2022. CLINICAL INDICATION:Female, 68 years old with history of C34.90 LUNG CA; PHH, f/u breast cancer hx of mastectomy TECHNIQUE: Multiple axial images were obtained through the chest. Sagittal and coronal reformats were created for review. Contrast used:100ml mL of Isovue 300 with IV Contrast (None if empty) Oral contrast used: (None if empty) FINDINGS: LUNGS/ PLEURA: Stable right lower lobe nodule measuring 3 mm series 3 image 39. No evidence for focal consolidation, pneumothorax or pleural effusion. AIRWAY: Patent and unremarkable. HEART: Size within normal limits. MEDIASTINUM: No gross evidence of adenopathy. VASCULATURE: No aortic aneurysm. MUSCULOSKELETAL: No acute osseous abnormalities SOFT TISSUES/LYMPH NODES: Posterior back sebaceous cyst not significantly changed from prior measurin g up to 9 mm. LOWER NECK: No significant findings. UPPER ABDOMEN: No significant findings. IMPRESSION: No evidence for lymphadenopathy or new suspicious mass or evidence for metastatic disease at this time.
== END | disposition home or self-care (01) ==
LOC: RADCTMAIN 08:23
PROVIDERS: ATTEND Internal Medicine
DX: C34.90 Malignant neoplasm of unspecified part of unspecified bronchus or lung (principal)
CPT/HCPCS: 82565; 84520; 71260; 36415; Q9967

== ENCOUNTER → 2023-11-27 | Outpatient (CLI) | payer MEDICARE ==
--- NOTE | 2023-11-30 14:48 | MM ---
Reason for Exam: Screening (asymptomatic). Last mammogram was performed 1 year(s) and 1 month(s) ago. Patient History: Menarche at age 12. First Full-Term at age 21. Postmenopausal. Patient has history of breast feeding. Other cancer, age 65. Sister had ovarian cancer, age 46. Risk Values: Farzana 5 year model risk: 1.5%. NCI Lifetime model risk: 4.8%. Prior Study Comparison: 10/22/2020 Bilateral Screening Mammogram, [facility]. 10/25/2021 Bilateral Screening Mammogram, [facility]. 10/31/2022 Bilateral MG 3D screening mammo w/cad, [facility]. Tissue Density: The breasts are heterogeneously dense, which may obscure small masses. Findings: Analyzed By CAD. The pattern is symmetrical. No significant interval change is evident. Benign rounded calcifications are present bilaterally. No suspicious groups of microcalcifications, spiculated or lobular masses, architectural distortion or other secondary signs of malignancy are mammographically apparent. Overall Assessment: Benign, BI-RAD 2 Management: Screening Mammogram of both breasts in 1 year. A negative mammogram report should not preclude additional follow up of suspicious palpable abnormalities. Patient should continue monthly self breast exam. A clinical breast exam by your physician is recommended on an annual basis and results should be correlated with mammographic findings. Note on Farzana scores and lifetime risk: 1. A Farzana score greater than 3% is considered moderate risk. If this is the case, consider specialist referral to assess eligibility for a risk reducing agent. 2. If overall lifetime risk for the development of breast cancer is 20% or higher, the patient may qualify for future screening with alternating mammogram and breast MRI. Electronically signed and approved by: Fer Lobo D.O. Radiologis
== END | disposition home or self-care (01) ==
LOC: RADMAMWWP 11:14
PROVIDERS: ATTEND Family Medicine
DX: Z12.31 Encounter for screening mammogram for malignant neoplasm of breast (principal); Z78.0 Asymptomatic menopausal state
CPT/HCPCS: 77063; 77067

== ENCOUNTER → 2024-11-04 | Outpatient (CLI) | payer MEDICARE ==
[2024-11-04 11:42] LABS: African American GFR (CKD) >90 (>60 ml/min/1.73 sqM); Blood Urea Nitrogen 10 mg/dL (7-17); Non-African American GFR(CKD) 87 (>60 ml/min/1.73 sqM)
--- NOTE | 2024-11-05 14:38 | CT ---
EXAMINATION TYPE: CT chest w con DATE OF EXAM: 11/04/2024 12:14 PM COMPARISON: Correlation CT 10/19/2023 CLINICAL INDICATION: Female, 69 years old with history of C34.90 MALIGNANT NEOPLASM OF UNSP PART OF U NSP BRO; PHH, Hx of lung CA. TECHNIQUE: CT of the chest after IV contrast. Coronal and sagittal reconstructions performed. Contrast used:100 ml mL of Isovue [address] DLP: 353.1 mGycm, Automated exposure control for dose reduction was used. FINDINGS: Heart is normal size without pericardial effusion. LAD and RCA coronary artery calcifications are pre sent. Aorta normal caliber with scattered [id number] atherosclerotic calcification plaque. Prominent right hilar lymph node at 1.5 cm remains unchanged. 1.2 cm cutaneous/subcutaneous nodule left posterior paramedian upper back unchanged, likely sebaceous cyst. Some strandy atelectasis noted at the posterior lung bases. Mild diffuse bronchial wall thickening. M ild emphysematous change. Minimal biapical pleural parenchymal scarring. Mild diffuse bronchial wall thickening. 3 mm right lower lobe pulmonary nodule unchanged. 3 mm superior segment left lower lobe pulmonary nodule unchanged. Additional scattered punctate 2 mm right-sided pulmonary nodules apparent on MIP axial series unchang ed as well. No new or enlarging suspicious pulmonary nodule is seen. Tiny hiatal hernia. Mild diffuse thickening of the left adrenal gland without discrete nodularity remains unchanged. Enrrique ical cyst lateral mid right kidney measuring 1.7 cm remains unchanged. 3.2 cm intramuscular lipoma la teral right abdominal wall remains unchanged. ACDF hardware. Mild degenerative disc disease mid dressing spine. No osseous destructive process seen . IMPRESSION: 1. COPD with mild emphysema and development of some strandy atelectasis in the lower lungs. Similar m inimal biapical pleural-parenchymal scarring. 2. A single prominent 1.5 cm right hilar lymph node remains unchanged suggesting benign etiology. 3. Scattered punctate 3 mm and smaller pulmonary nodules remain unchanged. No lymphadenopathy or new/ suspicious pulmonary nodules to suggest recurrent disease. [facility], , 11/05/2024 2:36 PM
== END | disposition home or self-care (01) ==
LOC: RADCTMAIN 11:00
PROVIDERS: ATTEND Internal Medicine
DX: C34.90 Malignant neoplasm of unspecified part of unspecified bronchus or lung (principal); J43.9 Emphysema, unspecified; J44.9 Chronic obstructive pulmonary disease, unspecified; J98.11 Atelectasis
CPT/HCPCS: 82565; 84520; 71260; 36415; Q9967

== ENCOUNTER → 2025-01-23 | Outpatient (CLI) | payer MEDICARE ==
--- NOTE | 2025-01-23 08:03 | MM ---
Reason for Exam: Screening (asymptomatic). Last mammogram was performed 1 year(s) and 2 month(s) ago. Patient History: Menarche at age 12. First Full-Term at age 21. Postmenopausal. Patient has history of breast feeding. Other cancer, age 65. Sister had ovarian cancer, age 46. Risk Values: Farzana 5 year model risk: 1.5%. NCI Lifetime model risk: 4.5%. Prior Study Comparison: 10/25/2021 Bilateral Screening Mammogram, [facility]. 10/31/2022 Bilateral MG 3D screening mammo w/cad, [facility]. 11/27/2023 Bilateral MG 3D screening mammo w/cad, [facility]. Tissue Density: There are scattered areas of fibroglandular density. Findings: Analyzed By CAD. Right breast: There is no suspicious group of microcalcifications or new suspicious mass. Benign-appearing calcifications right breast. Left breast: There is no suspicious group of microcalcifications or new suspicious mass. Benign-appearing calcifications left breast. Overall Assessment: Benign, BI-RAD 2 Management: Screening Mammogram of both breasts in [address] [facility] will attempt to contact patient to return for supplemental views and ultrasound if indicated. Patient should continue monthly self-breast exams. A clinical breast exam by your physician is recommended on an annual basis. This exam should not preclude additional follow-up of suspicious palpable abnormalities. Note on Farzana scores and lifetime risk: 1. A Farzana score greater than 3% is considered moderate risk. If this is the case, consider specialist referral to assess eligibility for a risk reducing agent. 2. If overall lifetime risk for the development of breast cancer is 20% or higher, the patient may qualify for future screening with alternating mammogram and breast MRI. [facility], , 01/23/2025 8:00 AM. Electronically signed and approved by: True Pearson DO
== END | disposition home or self-care (01) ==
LOC: RADMAMWWP 07:28
PROVIDERS: ATTEND Family Medicine
DX: Z12.31 Encounter for screening mammogram for malignant neoplasm of breast (principal); R92.323 Mammographic fibroglandular density, bilateral breasts; R92.1 Mammographic calcification found on diagnostic imaging of breast; Z78.0 Asymptomatic menopausal state
CPT/HCPCS: 77063; 77067